=== PATIENT | male | born 1940 | race Caucasian/White ===

== ENCOUNTER 2017-01-06 01:49 | Inpatient (IN) | payer OTHER ==
[2017-01-06] MEDS ORDERED: DUONEB (A & A) INH ONE (02:07)
--- NOTE | 2017-01-06 02:10 | PROVIDER DOCUMENTATION ---
HPI-Neurological Disorder - General Source: EMS <Monica Aguilaralcon Cerrato - Last Filed: 01/06/17 02:10> <Carmela Guevara - Last Filed: 01/06/17 03:13> - General Source: patient, family <Vicente Sykes - Last Filed: 01/06/17 04:51> - General Chief Complaint: Fall Stated Complaint: fall Time Seen by Provider: 01/06/17 02:07 Allergies/Adverse Reactions: Patient Allergies Allergy/AdvReac Type Severity Reaction Status Date / Time aspirin AdvReac Unknown Verified 01/06/17 02:03 Home Medications: Home Medication List Medication Instructions Recorded Confirmed Last Taken Type Atenolol 25 mg PO DAILY 03/19/15 08/06/16 03/26/16 07:00 History Gabapentin 300 mg PO TID 03/19/15 08/06/16 03/25/16 16:00 History Metformin [Glucophage] 1,000 mg PO BID 03/19/15 08/06/16 03/26/16 07:00 History Omeprazole 80 mg PO DAILY 03/19/15 08/06/16 03/26/16 07:00 History PRAVAstatin [Pravachol] 80 mg PO DAILY 03/19/15 08/06/16 03/25/16 19:00 History Tamsulosin [Flomax] 0.4 mg PO QHS 03/19/15 08/06/16 03/25/16 12:00 History Trazodone [Desyrel] 100 mg PO QHS 03/19/15 08/06/16 03/25/16 19:00 History Warfarin [Coumadin] 4 mg PO DIRECTED 03/19/15 08/06/16 03/26/16 07:00 History Cholecalciferol (Vitamin D3) 1,000 units PO DAILY 08/18/15 08/06/16 03/26/16 07: 00 History [Vitamin D] Magnesium Cl D.r. [Slow-Mag] 1 tab PO BID 08/18/15 08/06/16 03/25/16 12:00 History Vit B12/Pyridoxine/Thiamine [Pv 1 tab PO DAILY 08/18/15 08/06/16 03/26/16 07:00 History Neuro Deni Tablet] Zolpidem Tartrate 10 mg PO HS 08/18/15 08/07/16 03/25/16 19:00 History Glimepiride 4 mg PO DAILY 03/26/16 08/06/16 03/26/16 07:00 History Warfarin [Coumadin] 2 mg PO DIRECTED 03/26/16 08/06/16 03/24/16 History Acetaminophen with Codeine 1 tab PO PRN PRN 08/06/16 08/07/16 Unknown History [Tylenol with Codeine #3] Acetaminophen with Codeine 1 each PO Q6H PRN PRN #20 tablet 08/07/16 Unknown Rx [Tylenol with Codeine #3 Tablet] Sulfamethoxazole/Tmp D.s. [Septra 1 each PO BID #20 tablet 08/07/16 Unknown Rx Ds] - History of Present Illness-Neuro Nature of Presenting Problem: 77 y/o WM who is not able to give history, BIB EMS for fall and AMS. States called due to fall out of the bed. It is unknown if he hit his head, had loc or has any injuries. Other history is unobtainable, patient cannot answer my questions. He responds to sternal rub, will open eyes with commands. ( Kenzie Aguilar) Review of Systems - Adult - REVIEW OF SYSTEMS - ADULT ROS:: unobtainable per condition <Kenzie Aguilar - Last Filed: 01/06/17 02:10> - REVIEW OF SYSTEMS - ADULT Constitutional: reports: see HPI All Other Systems: Reviewed and Negative <Vicente Sykes - Last Filed: 01/06/17 04:51> Past History - Adult - PAST MEDICAL HISTORY-ADULT Review of Records: reports: Old Records Reviewed, Nursing Assessment Review, Medications Reviewed, Social history reviewed & non-contributory. Major Childhood Illnesses: reports: denies history Cardiovascular: reports: A-Fib, CAD, HTN, hyperlipidemia Respiratory: reports: denies history Gastrointestinal: reports: denies history Genitourinary: reports: denies history Musculoskeletal: reports: denies history Neurological: reports: cognitive dysfunction (dementia) Endocrine/Immune: reports: Diabetes Diabetes Type: Type 2 Other Conditions: reports: denies history - PRIOR SURGERIES/PROCEDURES Surgical/Procedure History: reports: orthopedic (extremity) (left shoulder ) - PRIOR HOSPITALIZATIONS Prior Hospitalizations: reports: none - IMMUNIZATION STATUS Childhood Immunizations: See Nurse Assessment Flu Vaccine: See Nurse Assessment - FAMILY HISTORY Family History: reviewed, not pertinent - SOCIAL HISTORY Living Situation: family <Kenzie Aguilar - Last Filed: 01/06/17 02:10> - PAST MEDICAL HISTORY-ADULT Review of Records: reports: Old Records Reviewed, Nursing Assessment Review, Medications Reviewed, Social history reviewed & non-contributory. <Vicente Sykes - Last Filed: 01/06/17 04:51> Physical Exam- Neurological - Physical Exam-Neuro Initial Vital Signs Reviewed: Yes General Appearance: lethargic, slow to respond Eye Exam: bilateral eye: normal inspection, PERRL HENMT: normocephalic/atraumatic, moist mucous membranes Head Injury: no evidence of injury Neck: non-tender, full range of motion, supple, normal inspection. negative: C- spine tenderness Respiratory: chest non-tender, no pleuratic chest pain, no respiratory distress , no accessory muscle use, wheezing (generalized, poor air movement.) Cardiovascular: tachycardia Abdominal Exam: distended, tenderness (generalized, groans with palpation), hernia (umbilical) Peripheral Pulses: radial (R): 2+, radial (L): 2+, dorsalis-pedis (R): 2+, dorsalis-pedis (L): 2+ audio video tech Exam: negative: facial droop Neurologic: other (patient will respond to gross commands. Cannot answer questions, nwil not move the lower extremities on command.) <Kenzie AguilarLizy - Last Filed: 01/06/17 02:10> Progress - EKG 1 Time of EKG reading by physician:: 03:03 EKG Read and Signed by:: Vicente Sykes EKG Interpretation (*Must complete 3 of following elements*): Abnormal Rate: 120 Rhythm: sinus tachycardia with PVCs or fusion complexes [place]: left <Carmela Guevara - Last Filed: 01/06/17 03:13> - REASSESSMENT Reassessment #1 Time Reassessed: 04:49 (pts aware of er tx plan and admit ,also aware of labs and ct reports) Status: unchanged - CONSULTS/PCP/HOSPITALIST Notification #1 *Consult/PCP/Hospitalist*: dr palacio Time Discussed: 04:00 <Vicente Sykes - Last Filed: 01/06/17 04:51> Departure <Kenzie Aguilar - Last Filed: 01/06/17 02:10> <Carmela Guevara - Last Filed: 01/06/17 03:13> - Departure Time of Disposition Order: 04:47 Certified Medical Emergency: Emergent <Vicente Sykes - Last Filed: 01/06/17 04:51> - Departure DIAGNOSIS: Atrial fibrillation with rapid ventricular response, Rhabdomyolysis, Fall, Contusion, knee and lower leg Disposition: ADMITTED INPATIENT 09 Condition: Stable Referrals: None,PCP [Primary Care Provider] - Attestation - Physician/ RAMÓN Attestation Patient care was provided by Advanced Practice Provider:: Yes Advanced Practice Provider:: Kenzie Aguilar Advanced Practice Provider documentation review:: The Mid-level provider documentation, treatment plan and medical decision making was reviewed by the physician who agrees with all treatment and medical decision making by the MLP. The physician spent face to face time with patient:: Yes <Kenzie Aguilar - Last Filed: 01/06/17 02:10> Physician Attestation
[2017-01-06 02:43] LABS: MANUAL DIFF NEEDED? NO
[2017-01-06 02:56] LABS: BASO% 0.2 % (0.0-0.8); EOS# 0.02 X1000 (0.0-0.7); EOS% 0.4 % (0.0-10.0); HEMOGLOBIN 13.2 g/dL (14.0-18.0); IMM GRAN# 0.01 X1000 (0.0-0.04); IMM GRAN% 0.2 % (0.0-0.5); LYMPH# 0.57 X1000 (1.2-3.4); LYMPH% 11.6 % (20.5-51.1); MCH 29.7 PG (27-31); MCHC 33.8 g/dL (33-37); MCV 87.6 FL (81-99); MONO# 0.38 X1000 (0.11-0.59); MONO% 7.7 % (1.7-9.3); MPV 10.9 FL (7.4-10.4); NEUT% 79.9 % (42.2-75.2); PLT 174 X1000 (130-400); RBC 4.45 XMIL (4.7-6.1)
[2017-01-06 03:21] LABS: BE 0.3 mmoll (-3.0-3.0); BLOOD TYPE ARTERIAL; DRAW SITE R RADIAL; METHB 1.4 % (0.0-1.5); O2(CT) 17.2 mL/dL (15.0-23.0); PCO2(98.6) 38 mmHg (35-45); PO2(98.6) 99 mmHg (60-100); SAMPLE BLOOD; SAO2 97.8 % (95.0-100.0); THB 12.7 g/dL (11.5-17.4); pH(98.6) 7.42 (7.35-7.45)
[2017-01-06 03:22] LABS: ALLEN TEST YES; MODALITY CANNULA
[2017-01-06 03:26] LABS: ALBUMIN 4.4 g/dL (3.5-5.0); CALCIUM 9.5 mg/dL (8.8-10.2); POTASSIUM 4.1 mmol/L (3.5-5.1); TOTAL BILIRUBIN 0.2 mg/dL (0.20-1.00); TOTAL PROTEIN 7.2 g/dL (6.3-8.3)
[2017-01-06 03:34] LABS: CK INDEX 0.2 (0.0-2.5); CK-MB 1.35 ng/mL (0.0-5.0)
[2017-01-06] MEDS ORDERED: NS 1,000 ML IV ONE (03:41)
[2017-01-06 03:58] LABS: URINE CULTURE PL NEEDED? NO; URINE SOURCE CLEAN CATCH
[2017-01-06] MEDS ORDERED: ZOFRAN IV PRN (04:04)
[2017-01-06 04:09] LABS: UR AMPHETAMINES QUAL NONE DETECTED (NONE DETECT); UR BARBITUATES QUAL NONE DETECTED (NONE DETECT); UR BENZODIAZEPIN QUAL NONE DETECTED (NONE DETECT); UR CANNABINOIDS QUAL NONE DETECTED (NONE DETECT); UR COCAINE QUAL NONE DETECTED (NONE DETECT); UR MDMA QUAL NONE DETECTED (NONE DETECT); UR METHADONE QUAL NONE DETECTED (NONE DETECT); UR METHAMPHETAMINE QUAL NONE DETECTED (NONE DETECT); UR OPIATES QUAL PRESUMPTIVE POSITIVE (NONE DETECT); UR OXYCODONE QUAL NONE DETECTED (NONE DETECT); UR PCP QUAL NONE DETECTED (NONE DETECT); UR TCA QUAL NONE DETECTED (NONE DETECT)
[2017-01-06 04:33] LABS: INR 1.61 (0.86-1.15); PROTIME 19.4 Seconds (12.1-15.5); PTT PL 46.2 Seconds (22.6-43.9)
[2017-01-06] MEDS ORDERED: CARDIZEM IV ONE (04:45)
[2017-01-06] MEDS ORDERED: ATIVAN IV ONE (04:46)
[2017-01-06 05:10] LABS: BILIRUBIN URINE NEGATIVE (NEGATIVE); BLOOD URINE 3+ (NEGATIVE); CLARITY CLEAR (CLEAR); COLOR YELLOW; LEUKOCYTES URINE NEGATIVE (NEGATIVE); NITRITE URINE NEGATIVE (NEGATIVE); PROTEIN URINE 1+(30 mg/dL) mg/dL (NEGATIVE); UROBILINOGEN URINE NORMAL
[2017-01-06 05:11] LABS: URINE EPITHELIAL CELLS <10 /HPF (<10); URINE WBC <10 /HPF (<10)
--- NOTE | 2017-01-06 06:10 | EKG Report ---
Test Performed on : 01/06/2017 03:03:16 AM Test Reason : AMS Blood Pressure : / mmHG Vent. Rate : 120 BPM Atrial Rate : 125 BPM P-R Int : 136 ms QRS Dur : 082 ms QT Int : 320 ms P-R-T Axes : 000 -39 047 degrees QTc Int : 452 ms Sinus tachycardia. with premature ventricular complexes. or fusion complexes Left axis deviation Abnormal ECG When compared with ECG of 26-MAR-2016 09:56, Sinus rhythm. has replaced Atrial fibrillation. Unconfirmed Result
[2017-01-06] MEDS: DUONEB (A & A) INH SCH ×4 (07:30→23:46)
--- NOTE | 2017-01-06 08:59 | Diag Imaging Result Document ---
PROCEDURE NAME: HEAD/C-SPINE W/O CONTRAST - 01/06/[address], 01/06/2017: COMPARISON: 08/07/2016. FINDINGS: There is stable diffuse cerebral atrophy. Stable chronic microvascular disease. There is slight worsening in the bilateral maxillary and ethmoid sinusitis. No intracranial mass or hemorrhage. The skull is intact. IMPRESSION: No acute intracranial abnormality. Mild sinusitis. CT CERVICAL SPINE, 01/06/2017: COMPARISON: 08/07/2016. FINDINGS: There is stable anterior fusion at C5-C6-C7. No hardware fracture or loosening. Stable mild to moderate degeneration throughout the other levels of the cervical spine notably at C4-C5. Stable predominantly right-sided facet degeneration as well. IMPRESSION: No acute disease or change from prior.
--- NOTE | 2017-01-06 09:18 | EKG Report ---
Test Performed on : 01/06/2017 09:07:07 AM Test Reason : a-fib @ 150 Blood Pressure : / mmHG Vent. Rate : 149 BPM Atrial Rate : 082 BPM P-R Int : 160 ms QRS Dur : 112 ms QT Int : 294 ms P-R-T Axes : 000 -79 021 degrees QTc Int : 463 ms Undetermined rhythm Left axis deviation Right bundle branch block Abnormal ECG When compared with ECG of 06-JAN-2017 03:03, (Unconfirmed) Current undetermined rhythm precludes rhythm comparison, needs review Right bundle branch block is now present Confirmed by Keit Edouard MD ([id number]) on 01/16/2017 9:07:21 PM
--- NOTE | 2017-01-06 10:03 | Diag Imaging Result Document ---
PROCEDURE NAME: LUMBAR SPINE W/O CONTRAST - 01/06/2017 CT LUMBAR SPINE, 01/06/2017: COMPARISON: CT abdomen and pelvis 10/21/2013. FINDINGS: There is a stable nonobstructing left renal stone. Alignment is anatomic. Vertebral body heights are preserved. There is moderate multilevel disk degeneration worst at L4-L5. No fracture or subluxation. No severe central canal stenosis. IMPRESSION: Lumbar spondylosis. Left nephrolithiasis. No change from prior.
--- NOTE | 2017-01-06 10:04 | Diag Imaging Result Document ---
PROCEDURE NAME: PELVIS W/O CONTRAST - 01/06/2017 CT PELVIS, 01/06/2017: COMPARISON: 10/21/2013. FINDINGS: No fracture or subluxation. There is advanced degeneration of the sacroiliac joints. There is mild degeneration of the hip joints bilaterally. Soft tissues are clear. IMPRESSION: Degenerative changes of the pelvis. No acute injury.
[2017-01-06] MEDS: TENORMIN PO SCH (10:12)
[2017-01-06] MEDS ORDERED: COUMADIN PO SCH ×3 (11:30→21:00)
[2017-01-06] MEDS: CARDIZEM 100 MG/NS 100 ML IV SCH ×2 (12:00→19:53)
--- NOTE | 2017-01-06 12:34 | Diag Imaging Result Document ---
PROCEDURE NAME: KNEE 3 VIEWS RIGHT - 01/06/2017 X-RAY RIGHT KNEE 3 VIEWS, 01/06/2017: COMPARISON: None. FINDINGS: Alignment is anatomic. No evidence of fracture or subluxation. There is moderate degeneration at all 3 compartments of the knee. There is also rather advanced peripheral vascular disease. No joint effusion. IMPRESSION: Rather advanced chronic changes of the knee.
--- NOTE | 2017-01-06 12:37 | Diag Imaging Result Document ---
PROCEDURE NAME: CHEST-PORTABLE - 01/06/2017 PORTABLE CHEST X-RAY, 01/06/2017: COMPARISON: 04/15/2016. FINDINGS: Stable cardiac device in the anterior chest wall. Heart size is normal. Pulmonary vascularity is normal. No focal infiltrates. IMPRESSION: No acute disease or change from prior.
[2017-01-06 12:51] LABS: AGAP 15; ALBUMIN 3.5 g/dL (3.5-5.0); ALKALINE PHOSPHATASE 35 U/L (32-122); BUN 12 mg/dL (8-22); CALCIUM 8.8 mg/dL (8.8-10.2); CHLORIDE 97 mmol/L (98-107); COSMO 273; GOT 30 U/L (10-34); GPT 12 U/L (10-44); MAGNESIUM 1.5 mg/dL (1.5-2.7); POTASSIUM 3.3 mmol/L (3.5-5.1); SODIUM 133 mmol/L (136-145); TCO2 21 mmol/L (25-35); TOTAL PROTEIN 6.3 g/dL (6.3-8.3)
[2017-01-06 13:10] LABS: CK INDEX 0.2 (0.0-2.5); CK-MB 1.18 ng/mL (0.0-5.0)
[2017-01-06 14:59] LABS: URINE CULTURE PL NEEDED? NO; URINE SOURCE VOIDED
[2017-01-06 15:03] LABS: BILIRUBIN URINE NEGATIVE (NEGATIVE); BLOOD URINE 2+ (NEGATIVE); CLARITY VERY CLOUDY (CLEAR); COLOR AMBER; PROTEIN URINE 1+(30 mg/dL) mg/dL (NEGATIVE); URINE RBC <10 /HPF (<10)
[2017-01-06 15:04] LABS: LEUKOCYTES URINE NEGATIVE (NEGATIVE); NITRITE URINE NEGATIVE (NEGATIVE); UROBILINOGEN URINE NORMAL
--- NOTE | 2017-01-06 15:05 | HISTORY AND PHYSICAL ---
CHIEF COMPLAINT: Fall. HPI: This is a 77-year-old male with a history of atrial fibrillation, hypertension, syncope, diabetes mellitus and antithrombin 3 deficiency. He presented to the emergency room via EMS after falling out of bed. The patient has dementia and therefore history is taken from the and the chart. It is unknown if he hit his head or if he sustained any injuries. CT of the head, cervical spine, lumbar and pelvis were performed which revealed no acute abnormalities. In the emergency room he did have an EKG that revealed sinus tach at a rate of 120. At that time he was given albuterol nebulizations, 0.5 of Ativan and he was admitted for further evaluation and treatment. Shortly after arrival to the floor his heart rate did increase., EKG revealed atrial fibrillation with RVR. Therefore he has been transferred ICU. 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 PAST SURGICAL HISTORY: Shoulder, ear and neck surgery. SOCIAL HISTORY: No alcohol, tobacco or illicit drug use. He does live at home with his . He does have dementia. ALLERGIES: Aspirin which has unknown reaction. HOME MEDICATIONS: A list will be obtained. REVIEW OF SYSTEMS: Unable to obtain from the patient. PHYSICAL EXAMINATION: GENERAL: This is a 77-year-old man who is sitting up in the bed with no distress. VITAL SIGNS: Blood pressure is 114/86 with heart rate of 136, respirations are 20, temperature is 99.7 degrees axillary with oxygen saturations 99-100% on 2 L nasal cannula. CARDIOVASCULAR: Irregularly irregular rate and rhythm. S1 and S2 appreciated. PULMONARY: He has wheezes scattered throughout with no increased work of breathing noted. GASTROINTESTINAL: Abdomen soft, nondistended. Bowel sounds in all 4 quadrants. EXTREMITIES: No clubbing, cyanosis or edema. Pulses are palpable. SKIN: Warm and dry. DIAGNOSTIC: Labs, WBC is 4.93 with hemoglobin 13.2, hematocrit 39 and platelets 174,000. INR is 1.61, sodium is 135, potassium 4.1, BUN 14, creatinine 1.3 with a glucose of 199. His CPK is 899 with troponins less than 0.010 multiple occasions. Urine drug screen is positive for opiates. ABG, pH 7.42 with pCO2 38, PO2 of 99, bicarb of 25.1. These are on [address] of the head, cervical spine, lumbar spine and pelvis revealed no acute abnormality. ASSESSMENT AND PLAN: 1. Atrial fibrillation, rapid ventricular response. 2. Fall. 3. Rhabdomyolysis. 4. Fever. 5. Coronary artery disease history of. 6. Diabetes mellitus type 2. 7. 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 PLAN: He will be admitted to the hospital placed on telemetry. Will give IV hydration. Trend labs. We will trend CPK. We will hold any antidiabetic medicine at present and he will be placed on pattern blood glucose with sliding scale insulin. As he has been transferred to ICU will start a Cardizem drip. We will continue to trend cardiac enzymes. Further treatments pending hospital course. Dictated by RADHA Casas for Cristian Noonan MD
[2017-01-06] MEDS ORDERED: TYLENOL PO ONE (20:20)
[2017-01-06] MEDS: CARDIZEM PO SCH (20:56)
[2017-01-06] MEDS: TAMIFLU PO SCH (20:57)
[2017-01-06] MEDS: DESYREL PO SCH (20:57)
[2017-01-06] MEDS: SLOW-MAG PO SCH (20:59)
[2017-01-06] MEDS: PRAVACHOL PO SCH (20:59)
[2017-01-06] MEDS: HUMULIN R DOSE (PARKWAY) SUBQ SCH (21:00)
[2017-01-07] MEDS: CARDIZEM PO SCH ×4 (01:53→20:24)
[2017-01-07] MEDS: DUONEB (A & A) INH SCH ×2 (04:18→08:44)
[2017-01-07] MEDS: PRILOSEC PO SCH (06:12)
[2017-01-07] MEDS: HUMULIN R DOSE (PARKWAY) SUBQ SCH ×4 (06:12→20:26)
[2017-01-07 06:35] LABS: HEMATOCRIT 34.5 % (42.0-52.0); INR 1.54 (0.86-1.15); MCH 30.2 PG (27-31); MCHC 34.8 g/dL (33-37); MCV 86.7 FL (81-99); MPV 11.2 FL (7.4-10.4); PROTIME 18.7 Seconds (12.1-15.5); RBC 3.98 XMIL (4.7-6.1)
[2017-01-07 06:51] LABS: AGAP 12; ALBUMIN 3.6 g/dL (3.5-5.0); ALKALINE PHOSPHATASE 35 U/L (32-122); BUN 11 mg/dL (8-22); CALCIUM 9.1 mg/dL (8.8-10.2); CHLORIDE 98 mmol/L (98-107); COSMO 274; GOT 32 U/L (10-34); GPT < 5 U/L (10-44); MAGNESIUM 1.7 mg/dL (1.5-2.7); POTASSIUM 3.6 mmol/L (3.5-5.1); SODIUM 135 mmol/L (136-145); TCO2 25 mmol/L (25-35)
[2017-01-07 07:07] LABS: CK INDEX 0.3 (0.0-2.5); CK-MB 1.67 ng/mL (0.0-5.0)
[2017-01-07] MEDS ORDERED: COUMADIN PO SCH (08:30)
--- NOTE | 2017-01-07 08:46 | PROGRESS NOTE ---
DATE: 01/07/2017 SUBJECTIVE: Patient notes that he is feeling a little bit better. He is having less cough and congestion. Still having right shoulder pain but this is from a previous fall. Denies any current chest pain or palpitations. Denies any fevers, chills. PHYSICAL EXAMINATION: General: Well developed, well nourished. He is in no respiratory distress currently. Vital Signs: His temperature is 98, pulse 86, respiratory rate 20, BP 103/74. He is awake, alert, oriented. Neck: Supple. CV: Irregular rate but rate controlled currently. Chest: Relatively clear. Abdomen: Soft. Extremities: Moves all extremities. Neurologic: No changes. DIAGNOSTIC DATA: CBC normal. INR is low at 1.54. Potassium is better at 3.6, glucose better at 173. CPK continues to improve at 606. ASSESSMENT: 1. Atrial fibrillation with rapid ventricular response, resolved, currently chronic atrial fibrillation. 2. Frequent falls. 3. Rhabdomyolysis. 4. Fever, resolved. 5. Influenza type A. 6. Known coronary artery disease. 7. Diabetes. 8. Antithrombin 3 deficiency, on Coumadin. PLAN: We will move patient to the floor. We will continue his current home medications. Further orders as needed.
[2017-01-07] MEDS: TAMIFLU PO SCH ×2 (08:57→20:27)
[2017-01-07] MEDS: VITAMIN D PO SCH (08:57)
[2017-01-07] MEDS: FLOMAX PO SCH (08:58)
[2017-01-07] MEDS: TENORMIN PO SCH (08:58)
[2017-01-07] MEDS: TYLENOL WITH CODEINE #3 PO PRN ×3 (09:06→22:00)
[2017-01-07] MEDS: GLUCOPHAGE PO SCH ×2 (09:07→16:37)
[2017-01-07] MEDS: NEPHROCAPS PO SCH (10:47)
[2017-01-07] MEDS: SLOW-MAG PO SCH ×2 (10:48→20:27)
[2017-01-07] MEDS: AMARYL PO SCH ×2 (12:24→20:25)
--- NOTE | 2017-01-07 14:16 | EKG Report ---
Test Performed on : 01/07/2017 2:05:08 PM Test Reason : possible rhythm change to NSR Blood Pressure : / mmHG Vent. Rate : 078 BPM Atrial Rate : 441 BPM P-R Int : 000 ms QRS Dur : 076 ms QT Int : 360 ms P-R-T Axes : 000 -20 014 degrees QTc Int : 410 ms Accelerated Junctional rhythm. Nonspecific ST abnormality Abnormal ECG When compared with ECG of 06-JAN-2017 09:07, (Unconfirmed) Previous ECG has undetermined rhythm, needs review Right bundle branch block is no longer present Unconfirmed Result
[2017-01-07] MEDS: AMBIEN PO SCH (20:25)
[2017-01-07] MEDS: COUMADIN PO SCH (20:25)
[2017-01-07] MEDS: DESYREL PO SCH (20:26)
[2017-01-07] MEDS: PRAVACHOL PO SCH (20:26)
[2017-01-07] MEDS: NEURONTIN PO SCH (20:26)
[2017-01-08] MEDS: CARDIZEM PO SCH ×4 (01:32→20:50)
[2017-01-08 04:40] LABS: INR 1.84 (0.86-1.15); PROTIME 21.4 Seconds (12.1-15.5)
[2017-01-08] MEDS: HUMULIN R DOSE (PARKWAY) SUBQ SCH ×4 (06:27→20:52)
[2017-01-08] MEDS: PRILOSEC PO SCH (06:27)
[2017-01-08] MEDS ORDERED: LASIX IV ONE (07:13)
[2017-01-08] MEDS ORDERED: KLOR-CON PO ONE (07:13)
[2017-01-08] MEDS ORDERED: SOLU-MEDROL IV ONE (07:33)
[2017-01-08] MEDS: LEVAQUIN 750 MG/D5W 150 ML IV SCH (07:37)
[2017-01-08] MEDS: GLUCOPHAGE PO SCH ×2 (07:37→17:48)
[2017-01-08] MEDS: FLOMAX PO SCH (09:23)
[2017-01-08] MEDS: SLOW-MAG PO SCH ×2 (09:23→20:54)
[2017-01-08] MEDS: VITAMIN D PO SCH (09:23)
[2017-01-08] MEDS: TAMIFLU PO SCH ×2 (09:23→20:53)
[2017-01-08] MEDS: NEPHROCAPS PO SCH (09:23)
[2017-01-08] MEDS: TENORMIN PO SCH (09:23)
[2017-01-08] MEDS: AMARYL PO SCH ×2 (11:50→20:50)
[2017-01-08] MEDS: TYLENOL WITH CODEINE #3 PO PRN ×2 (13:37→20:45)
[2017-01-08] MEDS: AMBIEN PO SCH (20:51)
[2017-01-08] MEDS: DESYREL PO SCH (20:51)
[2017-01-08] MEDS: COUMADIN PO SCH (20:51)
[2017-01-08] MEDS: NEURONTIN PO SCH (20:52)
[2017-01-08] MEDS: PRAVACHOL PO SCH (20:53)
[2017-01-09] MEDS: TYLENOL WITH CODEINE #3 PO PRN (03:00)
[2017-01-09] MEDS: CARDIZEM PO SCH ×4 (03:00→20:15)
[2017-01-09 06:06] LABS: BE 0.5 mmoll (-3.0-3.0); BLOOD TYPE ARTERIAL; DRAW SITE L RADIAL; METHB 1.1 % (0.0-1.5); O2(CT) 14.8 mL/dL (15.0-23.0); PCO2(98.6) 36 mmHg (35-45); PO2(98.6) 83 mmHg (60-100); SAMPLE BLOOD; SAO2 96.6 % (95.0-100.0); THB 11.1 g/dL (11.5-17.4); pH(98.6) 7.44 (7.35-7.45)
[2017-01-09 06:13] LABS: ALLEN TEST YES; MODALITY ROOM AIR
[2017-01-09] MEDS: PRILOSEC PO SCH (06:23)
[2017-01-09] MEDS: HUMULIN R DOSE (PARKWAY) SUBQ SCH (06:23)
[2017-01-09 06:25] LABS: BASO% 0.1 % (0.0-0.8); HEMATOCRIT 36.3 % (42.0-52.0); IMM GRAN# 0.01 X1000 (0.0-0.04); IMM GRAN% 0.1 % (0.0-0.5); LYMPH# 0.73 X1000 (1.2-3.4); LYMPH% 10.4 % (20.5-51.1); MANUAL DIFF NEEDED? YES; MCH 28.8 PG (27-31); MCHC 33.1 g/dL (33-37); MCV 87.1 FL (81-99); MONO# 0.38 X1000 (0.11-0.59); MONO% 5.4 % (1.7-9.3); MPV 11.7 FL (7.4-10.4); PLT 182 X1000 (130-400); RBC 4.17 XMIL (4.7-6.1)
[2017-01-09 06:35] LABS: INR 2.78 (0.86-1.15); PROTIME 29.3 Seconds (12.1-15.5)
[2017-01-09 06:43] LABS: ALBUMIN 3.7 g/dL (3.5-5.0); CALCIUM 9.5 mg/dL (8.8-10.2); MAGNESIUM 1.4 mg/dL (1.5-2.7); POTASSIUM 4.7 mmol/L (3.5-5.1); TOTAL BILIRUBIN 0.2 mg/dL (0.20-1.00); TOTAL PROTEIN 6.9 g/dL (6.3-8.3)
[2017-01-09 07:15] LABS: BANDS 2 % (0-1); LYMPHS 4 % (21-51); MONO 1 % (1-9)
--- NOTE | 2017-01-09 08:26 | Diag Imaging Result Document ---
PROCEDURE NAME: CHEST-PORTABLE - 01/09/2017 CHEST, SINGLE VIEW: INDICATION: Cough. Dyspnea. COMPARISON: 01/06/2017. FINDINGS: The cardiomediastinal silhouette is within normal limits. The pulmonary vasculature is not congested. There are no acute infiltrates or effusions. Stable electronic device projects over the left lung. There are postsurgical changes of the lumbar spine. IMPRESSION: 1. Stable chest. 2. No acute cardiopulmonary abnormality.
[2017-01-09] MEDS: LEVAQUIN 750 MG/D5W 150 ML IV SCH (08:58)
[2017-01-09] MEDS: FLOMAX PO SCH (08:58)
[2017-01-09] MEDS: VITAMIN D PO SCH (08:58)
[2017-01-09] MEDS: GLUCOPHAGE PO SCH ×2 (08:58→17:20)
[2017-01-09] MEDS: TENORMIN PO SCH (08:59)
[2017-01-09] MEDS: NEPHROCAPS PO SCH (08:59)
[2017-01-09] MEDS: TAMIFLU PO SCH ×2 (08:59→22:40)
[2017-01-09] MEDS: DESYREL PO SCH (10:40)
[2017-01-09] MEDS: SLOW-MAG PO SCH ×2 (10:50→22:37)
[2017-01-09] MEDS: HUMALOG DOSE (PARKWAY) SUBQ SCH ×3 (10:56→22:40)
[2017-01-09] MEDS: AMARYL PO SCH ×2 (11:00→22:38)
[2017-01-09] MEDS ORDERED: AMBIEN ONE (22:28)
[2017-01-09] MEDS: NEURONTIN PO SCH (22:38)
[2017-01-09] MEDS: PRAVACHOL PO SCH (22:40)
[2017-01-10] MEDS: CARDIZEM PO SCH ×4 (02:37→19:50)
[2017-01-10] MEDS: TYLENOL WITH CODEINE #3 PO PRN ×3 (06:09→19:50)
[2017-01-10] MEDS: PRILOSEC PO SCH (06:10)
[2017-01-10] MEDS: HUMALOG DOSE (PARKWAY) SUBQ SCH ×4 (06:35→21:13)
[2017-01-10 07:03] LABS: INR 3.42 (0.86-1.15); PROTIME 34.3 Seconds (12.1-15.5)
[2017-01-10 07:14] LABS: CALCIUM 9.3 mg/dL (8.8-10.2); MAGNESIUM 1.4 mg/dL (1.5-2.7); POTASSIUM 3.9 mmol/L (3.5-5.1)
[2017-01-10] MEDS ORDERED: LASIX IV ONE (07:43)
[2017-01-10] MEDS: SOLU-MEDROL IV SCH ×3 (08:19→23:05)
[2017-01-10] MEDS: GLUCOPHAGE PO SCH ×2 (08:19→17:24)
[2017-01-10] MEDS ORDERED: CARDIZEM PO ONE (09:34)
[2017-01-10] MEDS: NEPHROCAPS PO SCH (09:40)
[2017-01-10] MEDS: TENORMIN PO SCH (09:40)
[2017-01-10] MEDS: FLOMAX PO SCH (09:40)
[2017-01-10] MEDS: VITAMIN D PO SCH (09:40)
[2017-01-10] MEDS: LEVAQUIN 750 MG/D5W 150 ML IV SCH (09:40)
[2017-01-10] MEDS: SLOW-MAG PO SCH ×2 (09:41→21:12)
[2017-01-10] MEDS: TAMIFLU PO SCH ×2 (09:42→21:12)
[2017-01-10] MEDS: AMARYL PO SCH ×2 (12:15→21:12)
[2017-01-10] MEDS: COUMADIN PO SCH (19:45)
[2017-01-10] MEDS: PRAVACHOL PO SCH (21:12)
[2017-01-10] MEDS: DESYREL PO SCH (21:12)
[2017-01-10] MEDS: NEURONTIN PO SCH (21:12)
[2017-01-11] MEDS: CARDIZEM PO SCH ×4 (01:06→20:12)
[2017-01-11] MEDS: HUMALOG DOSE (PARKWAY) SUBQ SCH ×4 (06:05→20:14)
[2017-01-11] MEDS: PRILOSEC PO SCH (06:06)
[2017-01-11 06:40] LABS: HEMOGLOBIN 11.3 g/dL (14.0-18.0); IMM GRAN# 0.02 X1000 (0.0-0.04); IMM GRAN% 0.2 % (0.0-0.5); LYMPH# 0.68 X1000 (1.2-3.4); LYMPH% 8.1 % (20.5-51.1); MANUAL DIFF NEEDED? YES; MCH 29.4 PG (27-31); MCHC 34.2 g/dL (33-37); MCV 85.7 FL (81-99); MONO# 0.16 X1000 (0.11-0.59); MONO% 1.9 % (1.7-9.3); MPV 11.1 FL (7.4-10.4); NEUT% 89.8 % (42.2-75.2); PLT 200 X1000 (130-400); RBC 3.85 XMIL (4.7-6.1)
[2017-01-11 07:04] LABS: ALBUMIN 3.6 g/dL (3.5-5.0); CALCIUM 9.3 mg/dL (8.8-10.2); POTASSIUM 3.9 mmol/L (3.5-5.1); TOTAL BILIRUBIN 0.3 mg/dL (0.20-1.00); TOTAL PROTEIN 6.6 g/dL (6.3-8.3)
[2017-01-11 07:44] LABS: LYMPHS 7 % (21-51); MONO 1 % (1-9)
[2017-01-11] MEDS: LEVAQUIN 750 MG/D5W 150 ML IV SCH (08:02)
[2017-01-11] MEDS: FLOMAX PO SCH (08:03)
[2017-01-11] MEDS: VITAMIN D PO SCH (08:03)
[2017-01-11] MEDS: TENORMIN PO SCH (08:03)
[2017-01-11] MEDS: TAMIFLU PO SCH ×2 (08:03→20:23)
[2017-01-11] MEDS: GLUCOPHAGE PO SCH ×2 (08:03→16:31)
[2017-01-11] MEDS: SOLU-MEDROL IV SCH ×2 (08:03→20:12)
[2017-01-11] MEDS: TYLENOL WITH CODEINE #3 PO PRN ×2 (08:28→16:37)
[2017-01-11] MEDS: NEPHROCAPS PO SCH (10:51)
[2017-01-11] MEDS: SLOW-MAG PO SCH ×2 (10:51→20:11)
[2017-01-11] MEDS: AMARYL PO SCH ×2 (11:09→20:12)
[2017-01-11] MEDS: NEURONTIN PO SCH (20:11)
[2017-01-11] MEDS: DESYREL PO SCH (20:12)
[2017-01-11] MEDS: PRAVACHOL PO SCH (20:12)
[2017-01-12] MEDS: CARDIZEM PO SCH ×4 (02:09→20:44)
[2017-01-12] MEDS: HUMALOG DOSE (PARKWAY) SUBQ SCH ×4 (06:12→20:44)
[2017-01-12] MEDS: PRILOSEC PO SCH (06:12)
[2017-01-12] MEDS: TYLENOL WITH CODEINE #3 PO PRN ×3 (06:17→21:43)
[2017-01-12 06:59] LABS: AGAP 16; BUN 35 mg/dL (8-22); CALCIUM 9.2 mg/dL (8.8-10.2); CHLORIDE 102 mmol/L (98-107); COSMO 291; POTASSIUM 4.1 mmol/L (3.5-5.1); SODIUM 138 mmol/L (136-145); TCO2 20 mmol/L (25-35)
[2017-01-12 07:12] LABS: INR 2.67 (0.86-1.15); PROTIME 28.4 Seconds (12.1-15.5)
[2017-01-12] MEDS: GLUCOPHAGE PO SCH ×2 (08:45→17:10)
[2017-01-12] MEDS: TAMIFLU PO SCH ×2 (08:45→20:43)
[2017-01-12] MEDS: FLOMAX PO SCH (08:45)
[2017-01-12] MEDS: SOLU-MEDROL IV SCH ×2 (08:45→20:45)
[2017-01-12] MEDS: VITAMIN D PO SCH (08:46)
[2017-01-12] MEDS: NEPHROCAPS PO SCH (08:46)
[2017-01-12] MEDS: SLOW-MAG PO SCH ×2 (08:46→20:43)
[2017-01-12] MEDS: TENORMIN PO SCH (08:46)
[2017-01-12] MEDS ORDERED: CARDIZEM IV ONE (08:53)
[2017-01-12] MEDS ORDERED: NS 1,000 ML IV ONE (08:53)
[2017-01-12] MEDS ORDERED: CARDIZEM 100 MG/NS 100 ML IV SCH (09:30)
--- NOTE | 2017-01-12 09:32 | Diag Imaging Result Document ---
PROCEDURE NAME: CHEST-PORTABLE - 01/12/2017 SINGLE FRONTAL RADIOGRAPH OF THE CHEST: COMPARISON: 01/09/2017. FINDINGS: The lungs are grossly clear. No new consolidation is identified. There is no definite pleural fluid collection. Cardiac silhouette is stable. IMPRESSION: Stable chest, with no definite acute pathology.
[2017-01-12] MEDS: CARDIZEM 100 MG/NS 100 ML IV SCH ×2 (09:37→20:19)
[2017-01-12] MEDS: LEVAQUIN 750 MG/D5W 150 ML IV SCH (09:39)
--- NOTE | 2017-01-12 09:47 | EKG Report ---
Test Performed on : 01/12/2017 08:45:39 AM Test Reason : CP Blood Pressure : / mmHG Vent. Rate : 162 BPM Atrial Rate : 324 BPM P-R Int : 000 ms QRS Dur : 066 ms QT Int : 280 ms P-R-T Axes : 000 -48 -84 degrees QTc Int : 459 ms Atrial flutter. with 2:1 AV conduction. Left axis deviation Inferior infarct , age undetermined Abnormal ECG When compared with ECG of 07-JAN-2017 14:05, (Unconfirmed) Significant changes have occurred Confirmed by Kiet Edouard MD ([id number]) on 01/16/2017 9:03:36 PM
[2017-01-12] MEDS: AMARYL PO SCH ×2 (11:46→20:44)
--- NOTE | 2017-01-12 12:05 | PROGRESS NOTE ---
DATE: 01/12/2017 OBJECTIVE: Vital signs: Temperature 98, heart rate 161 and irregular, respiratory rate 30, blood pressure 107/64, O2 sat 95% on nasal oxygen. LABORATORY: Sodium 138, potassium 4.1, BUN 35, creatinine 1.1, stable. Hemoglobin yesterday was 33 and white blood count 8400. ASSESSMENT AND PLAN: He suddenly developed increased heart rate with atrial fibrillation this morning. There was also some shortness of breath. Discussion was made with Dr. Edouard, and the patient was transferred to ICU for Cardizem drip and further evaluation. He initially had some chest discomfort. He was given Cardizem 10 mg IV, and heart rate decreased to 120. Rhythm is still atrial fibrillation. He feels a little better now. He will be placed on Cardizem drip to maintain heart rate less than 100. Cardiac enzymes will be checked.
[2017-01-12] MEDS: PRAVACHOL PO SCH (20:44)
[2017-01-12] MEDS: NEURONTIN PO SCH (20:44)
[2017-01-12] MEDS: DESYREL PO SCH (20:44)
[2017-01-13] MEDS: CARDIZEM PO SCH (02:25)
[2017-01-13] MEDS: CARDIZEM 100 MG/NS 100 ML IV SCH ×3 (04:59→19:41)
[2017-01-13] MEDS: HUMALOG DOSE (PARKWAY) SUBQ SCH ×4 (06:06→20:39)
[2017-01-13] MEDS: PRILOSEC PO SCH (06:06)
[2017-01-13] MEDS: TYLENOL WITH CODEINE #3 PO PRN ×3 (06:06→20:39)
[2017-01-13 07:03] LABS: INR 2.47 (0.86-1.15); PROTIME 26.8 Seconds (12.1-15.5)
[2017-01-13] MEDS: JANUVIA PO SCH (08:45)
[2017-01-13] MEDS: LEVAQUIN 750 MG/D5W 150 ML IV SCH (08:45)
[2017-01-13] MEDS: CARDIZEM CD PO SCH (08:45)
[2017-01-13] MEDS: TENORMIN PO SCH (08:46)
[2017-01-13] MEDS: VITAMIN D PO SCH (08:46)
[2017-01-13] MEDS: FLOMAX PO SCH (08:46)
[2017-01-13] MEDS: GLUCOPHAGE PO SCH ×2 (08:46→18:12)
[2017-01-13] MEDS: SOLU-MEDROL IV SCH ×2 (08:48→20:40)
[2017-01-13] MEDS: NEPHROCAPS PO SCH (08:49)
[2017-01-13] MEDS: TAMIFLU PO SCH ×2 (08:49→20:50)
--- NOTE | 2017-01-13 08:49 | PROGRESS NOTE ---
DATE: 01/13/2017 VITAL SIGNS: Temperature 97.4 degrees, heart rate 96, blood pressure 128/75, O2 saturation 97% on 2 liters nasal oxygen. SUBJECTIVE: Patient had converted to sinus rhythm with rate of 80s last evening on a Cardizem drip. The drip was discontinued early this morning and he went back into atrial fibrillation with rate of 105. PLAN: Place back on Cardizem drip for rate control and increase p.o. Cardizem to 240 mg LA daily. He will be kept in the ICU through the day to see if his rate can be controlled with p.o. Cardizem.
[2017-01-13] MEDS: NS 500 ML IV SCH (08:58)
[2017-01-13] MEDS: SLOW-MAG PO SCH ×2 (09:27→20:38)
[2017-01-13] MEDS: AMARYL PO SCH ×2 (13:11→20:39)
--- NOTE | 2017-01-13 20:30 | EKG Report ---
Test Performed on : 01/13/2017 8:20:36 PM Test Reason : rhythm change Blood Pressure : / mmHG Vent. Rate : 084 BPM Atrial Rate : 326 BPM P-R Int : 000 ms QRS Dur : 076 ms QT Int : 384 ms P-R-T Axes : 053 011 041 degrees QTc Int : 453 ms Atrial flutter. with variable AV block. Abnormal ECG When compared with ECG of 12-JAN-2017 08:45, (Unconfirmed) Vent. rate has decreased BY 78 BPM Criteria for Inferior infarct are no longer present ST no longer depressed in Inferior leads ST no longer depressed in Anterolateral leads Nonspecific T wave abnormality no longer evident in Inferior leads Confirmed by Kiet Edouard MD ([id number]) on 01/16/2017 9:03:15 PM
[2017-01-13] MEDS: PRAVACHOL PO SCH (20:38)
[2017-01-13] MEDS: DESYREL PO SCH (20:38)
[2017-01-13] MEDS: NEURONTIN PO SCH (20:39)
[2017-01-13] MEDS ORDERED: COUMADIN PO SCH (21:00)
[2017-01-14] MEDS: CARDIZEM 100 MG/NS 100 ML IV SCH (04:07)
[2017-01-14] MEDS: HUMALOG DOSE (PARKWAY) SUBQ SCH ×4 (06:24→20:19)
[2017-01-14] MEDS: PRILOSEC PO SCH (06:24)
[2017-01-14] MEDS: JANUVIA PO SCH (08:01)
[2017-01-14] MEDS: CARDIZEM CD PO SCH (08:02)
[2017-01-14] MEDS: VITAMIN D PO SCH (08:02)
[2017-01-14] MEDS: TENORMIN PO SCH (08:02)
[2017-01-14] MEDS: FLOMAX PO SCH (08:02)
[2017-01-14] MEDS: TYLENOL WITH CODEINE #3 PO PRN ×2 (08:02→19:17)
[2017-01-14] MEDS: LEVAQUIN 750 MG/D5W 150 ML IV SCH (08:03)
[2017-01-14] MEDS: SOLU-MEDROL IV SCH ×2 (08:03→20:18)
[2017-01-14] MEDS: NEPHROCAPS PO SCH (08:03)
[2017-01-14] MEDS: SLOW-MAG PO SCH ×2 (08:03→20:20)
[2017-01-14] MEDS: GLUCOPHAGE PO SCH ×2 (08:03→17:08)
[2017-01-14] MEDS ORDERED: CORDARONE 540 MG in D5W 289.2 ML IV ONE (10:53)
[2017-01-14] MEDS ORDERED: CORDARONE 360 MG/D5W 200 ML IV ONE (10:53)
[2017-01-14] MEDS ORDERED: CORDARONE 150 MG/D5W 100 ML IV ONE (10:53)
[2017-01-14] MEDS: AMARYL PO SCH ×2 (11:11→20:18)
--- NOTE | 2017-01-14 11:48 | EKG Report ---
Test Performed on : 01/14/2017 10:41:32 AM Test Reason : afib rvr Blood Pressure : / mmHG Vent. Rate : 127 BPM Atrial Rate : 208 BPM P-R Int : 000 ms QRS Dur : 080 ms QT Int : 320 ms P-R-T Axes : 000 -20 084 degrees QTc Int : 465 ms Atrial fibrillation. with rapid ventricular response. Abnormal ECG When compared with ECG of 14-JAN-2017 10:40, (Unconfirmed) Previous ECG has undetermined rhythm, needs review Confirmed by Kiet Edouard MD ([id number]) on 01/16/2017 9:03:05 PM
[2017-01-14] MEDS: LANOXIN IV SCH ×2 (17:08→22:27)
[2017-01-14] MEDS: CORDARONE 360 MG/D5W 200 ML IV SCH (17:09)
--- NOTE | 2017-01-14 19:28 | CONSULTATION ---
DATE OF CONSULTATION: 01/14/2017 CONSULTATION REQUESTED BY: Masood Umana MD REASON FOR CONSULTATION: Atrial fibrillation with rapid response. HISTORY OF PRESENT ILLNESS: Mr. Adams is a 77-year-old male who presented to the hospital after suffering a fall. According to the patient's daughter and the , for several weeks he has been having recurrent episodes of cough productive of some phlegm, associated with episodes of weakness, and he has a tendency to fall when he goes to the bathroom early in the morning or during the night. This weakness and falls have increased and, on the day of admission, he suffered an additional fall. The family got very concerned. They brought him to the hospital where they did multiple x-rays. Chest x-ray showed no evidence of any acute illness. EKG was done in the emergency room and that showed atrial fibrillation with rapid ventricular response. They tested the patient for flu and he tested positive for influenza type A. They also x-rayed his head, cervical spine, and lumbar spine. No acute intracranial abnormality was noted. There were stable changes of chronic microvascular disease, stable diffuse cerebral atrophy. The cervical spine was free of any significant abnormality. A lumbar spine was also done. That showed lumbar spondylosis, left nephrolithiasis, no change from prior. They did a pelvic CT examination which showed degenerative changes to the pelvis, no acute injury. Over the course of the ensuing days, he continued to cough. His rhythm was managed with Cardizem. Eventually he converted, however, yesterday he went back into atrial fibrillation with rapid response, and they had to put him in the ICU. Dr. Umana saw him and has ordered intravenous amiodarone. The patient feels the palpitations. He is having some pleuritic type of chest pain under the left breast. He is not more short of breath than usual. PAST MEDICAL HISTORY: His past history is positive for the fact that he has been diagnosed with paroxysmal atrial fibrillation in the past. He had followed with Dr. Jada Hummel at my office. The patient has suffered an episode of syncope of undetermined etiology. Dr. Hummel proceeded to implant a loop recorder on him. He has had diabetes mellitus type 2, taking metformin for it. He does have history of arthritis of multiple joints. He has had previous deep venous thrombosis and pulmonary embolism in the past. He has been on long-term anticoagulation. He has hyperlipidemia, also history of asthma. PAST SURGICAL HISTORY: He has had cataract extraction and shoulder surgery, neck surgery, and eyelid surgery. SOCIAL HISTORY: He has been for many years. He has three children. He is retired from the . He is not a smoker. He is not a drinker. REVIEW OF SYSTEMS: The patient has been diagnosed with dementia. He has also some degree of agitation at night for which they have been prescribing psychotropic medications. Other review of systems is noncontributory. HOME MEDICATIONS: His home medications at the time of admission included: 1. Metformin 1000 twice a day and 500 at lunch. 2. Sertraline 20 mg at bedtime. 3. Atenolol 25 at bedtime. 4. Gabapentin 300 at bedtime. 5. Trazodone 75 at bedtime. 6. Magnesium 1 tablet twice a day. 7. Warfarin 4 mg as directed. 8. Omeprazole 80 mg daily. 9. Glimepiride 1 mg as directed. 10.Flomax 0.4 mg daily. 11.Acetaminophen every 6 hours. 12.Zolpidem 10 mg at bedtime. PHYSICAL EXAMINATION: Vital signs: Temperature 97.8, pulse 105, respirations 26, blood pressure 132/73. General: He is awake. His speech is somewhat dysarthric, somewhat slurred. HEENT: Otherwise unremarkable. Neck: No cervical bruits. No jugular venous distention. Chest: Occasional rhonchi, some occasional end-expiratory wheezes especially in the upper portion of the lungs. Cardiovascular: Heart sounds are irregularly irregular. No gallop or murmur is noted. Abdomen: Obese, nontender. No masses. No hepatomegaly. Extremities: Decreased pulses. No peripheral edema. Neurologic: He follows commands. Moves all four extremities. LABORATORY DATA: On 01/12/2017, sodium was 138, potassium 4.1, BUN 35, creatinine 1.1. White count 8350, hemoglobin 11.3, hematocrit 33.7, neutrophils 92%, lymphocytes 7%, monocytes 1%. The last chest x-ray, which was obtained on 01/12/2017, shows stable chest with no acute pathology. IMPRESSION: 1. Patient who presented to the hospital with recurrent falls. This is probably secondary to multiple psychotropic medications and his progressive neurodegenerative condition. 2. Paroxysmal atrial fibrillation at this time is persistent. 3. Recent episode of influenza type A. 4. Chronic obstructive pulmonary disease, asthma. 5. History of previous syncope. Status post implantation of loop recorder monitor. 6. History of diabetes mellitus type 2. RECOMMENDATIONS: At this point in time, I agree with Dr. Umana in terms of keeping him on intravenous amiodarone and follow protocol, switching him over to oral doses, and monitor his warfarin very closely because in all likelihood his pro-time is going to rise over the course of the next 3 or 4 days. I would consider getting a pulmonary consultation because of his respiratory complaints dating to more than 6 weeks ago. I think the opinion of a arcade technician may be helpful. Cardiac morton, we will probably add a few doses of digoxin to his regimen to see if that helps to control the heart rate. He is already taking Cardizem and atenolol in addition to amiodarone. We will see how he does. We will arrange followup with our group at the office down the road.
[2017-01-14] MEDS: COLACE PO SCH (20:18)
[2017-01-14] MEDS: DESYREL PO SCH (20:19)
[2017-01-14] MEDS: COUMADIN PO SCH (20:19)
[2017-01-14] MEDS: PRAVACHOL PO SCH (20:20)
[2017-01-14] MEDS: NEURONTIN PO SCH (20:20)
[2017-01-15] MEDS: LANOXIN IV SCH (04:34)
[2017-01-15] MEDS: CORDARONE 360 MG/D5W 200 ML IV SCH (04:35)
[2017-01-15] MEDS: HUMALOG DOSE (PARKWAY) SUBQ SCH ×4 (06:17→20:29)
[2017-01-15] MEDS: PRILOSEC PO SCH (06:18)
[2017-01-15 06:19] LABS: BASO% 0.1 % (0.0-0.8); HEMATOCRIT 36.5 % (42.0-52.0); HEMOGLOBIN 12.3 g/dL (14.0-18.0); IMM GRAN% 0.9 % (0.0-0.5); LYMPH% 4.4 % (20.5-51.1); MANUAL DIFF NEEDED? YES; MCH 29.1 PG (27-31); MCHC 33.7 g/dL (33-37); MCV 86.3 FL (81-99); MONO# 0.49 X1000 (0.11-0.59); MONO% 4.3 % (1.7-9.3); MPV 10.8 FL (7.4-10.4); NEUT% 90.3 % (42.2-75.2); PLT 276 X1000 (130-400); RBC 4.23 XMIL (4.7-6.1)
[2017-01-15 06:28] LABS: INR 2.09 (0.86-1.15); PROTIME 23.6 Seconds (12.1-15.5)
[2017-01-15 07:38] LABS: LYMPHS 10 % (21-51)
[2017-01-15 07:53] LABS: AGAP 16; BUN 40 mg/dL (8-22); CALCIUM 9.7 mg/dL (8.8-10.2); CHLORIDE 98 mmol/L (98-107); COSMO 284; MAGNESIUM 1.8 mg/dL (1.5-2.7); POTASSIUM 5.2 mmol/L (3.5-5.1); SODIUM 133 mmol/L (136-145); TCO2 20 mmol/L (25-35)
[2017-01-15] MEDS: COLACE PO SCH ×2 (08:32→20:28)
[2017-01-15] MEDS: CARDIZEM CD PO SCH (08:32)
[2017-01-15] MEDS: SLOW-MAG PO SCH ×2 (08:32→20:30)
[2017-01-15] MEDS: FLOMAX PO SCH (08:32)
[2017-01-15] MEDS: SOLU-MEDROL IV SCH ×2 (08:32→20:28)
[2017-01-15] MEDS: TENORMIN PO SCH (08:32)
[2017-01-15] MEDS: GLUCOPHAGE PO SCH ×2 (08:32→16:29)
[2017-01-15] MEDS: VITAMIN D PO SCH (08:32)
[2017-01-15] MEDS: JANUVIA PO SCH (08:32)
[2017-01-15] MEDS: LEVAQUIN 750 MG/D5W 150 ML IV SCH (08:33)
[2017-01-15] MEDS: NEPHROCAPS PO SCH (08:33)
[2017-01-15] MEDS: CORDARONE PO SCH ×2 (10:28→20:29)
[2017-01-15] MEDS: AMARYL PO SCH ×2 (11:54→20:28)
[2017-01-15] MEDS: TYLENOL WITH CODEINE #3 PO PRN ×2 (16:31→22:35)
[2017-01-15] MEDS: DESYREL PO SCH (20:29)
[2017-01-15] MEDS: COUMADIN PO SCH (20:29)
[2017-01-15] MEDS: NEURONTIN PO SCH (20:30)
[2017-01-15] MEDS: PRAVACHOL PO SCH (20:30)
[2017-01-16] MEDS: TYLENOL WITH CODEINE #3 PO PRN ×2 (04:20→20:20)
--- NOTE | 2017-01-16 04:40 | EKG Report ---
Test Performed on : 01/16/2017 04:34:54 AM Test Reason : rhythm change Blood Pressure : / mmHG Vent. Rate : 072 BPM Atrial Rate : 288 BPM P-R Int : 000 ms QRS Dur : 088 ms QT Int : 404 ms P-R-T Axes : 000 005 047 degrees QTc Int : 442 ms Atrial flutter. with 4:1 AV conduction. Abnormal ECG When compared with ECG of 14-JAN-2017 10:41, (Unconfirmed) Atrial flutter. has replaced Atrial fibrillation. Vent. rate has decreased BY 55 BPM Non-specific change in ST segment in Inferior leads Confirmed by Kiet Edouard MD ([id number]) on 01/16/2017 8:57:05 PM
[2017-01-16] MEDS: HUMALOG DOSE (PARKWAY) SUBQ SCH ×4 (07:04→20:30)
[2017-01-16] MEDS: PRILOSEC PO SCH (07:05)
[2017-01-16 07:23] LABS: INR 3.46 (0.86-1.15); PROTIME 34.6 Seconds (12.1-15.5)
[2017-01-16] MEDS: CORDARONE PO SCH ×2 (09:10→20:19)
[2017-01-16] MEDS: GLUCOPHAGE PO SCH ×2 (09:10→17:05)
[2017-01-16] MEDS: COLACE PO SCH ×2 (09:11→20:19)
[2017-01-16] MEDS: VITAMIN D PO SCH (09:11)
[2017-01-16] MEDS: TENORMIN PO SCH (09:11)
[2017-01-16] MEDS: SLOW-MAG PO SCH ×2 (09:12→20:18)
[2017-01-16] MEDS: SOLU-MEDROL IV SCH ×2 (09:12→20:18)
[2017-01-16] MEDS: PREDNISONE PO SCH (09:12)
[2017-01-16] MEDS: JANUVIA PO SCH (09:12)
[2017-01-16] MEDS: CARDIZEM CD PO SCH (09:13)
[2017-01-16] MEDS: FLOMAX PO SCH (09:14)
[2017-01-16] MEDS: LEVAQUIN 750 MG/D5W 150 ML IV SCH (09:14)
[2017-01-16] MEDS: NEPHROCAPS PO SCH (09:14)
[2017-01-16] MEDS: AMARYL PO SCH ×2 (12:10→20:19)
[2017-01-16] MEDS: NEURONTIN PO SCH (20:19)
[2017-01-16] MEDS: PRAVACHOL PO SCH (20:19)
[2017-01-16] MEDS: DESYREL PO SCH (20:20)
[2017-01-16] MEDS: COUMADIN PO SCH (20:22)
[2017-01-17] MEDS: HUMALOG DOSE (PARKWAY) SUBQ SCH ×4 (06:54→20:16)
[2017-01-17] MEDS: PRILOSEC PO SCH (06:54)
[2017-01-17 07:33] LABS: INR 5.53 (0.86-1.15); PROTIME 49.3 Seconds (12.1-15.5)
[2017-01-17] MEDS: FLOMAX PO SCH (09:09)
[2017-01-17] MEDS: GLUCOPHAGE PO SCH ×2 (09:09→16:11)
[2017-01-17] MEDS: CORDARONE PO SCH ×2 (09:09→20:06)
[2017-01-17] MEDS: JANUVIA PO SCH (09:09)
[2017-01-17] MEDS: VITAMIN D PO SCH (09:10)
[2017-01-17] MEDS: TENORMIN PO SCH (09:10)
[2017-01-17] MEDS: PREDNISONE PO SCH (09:10)
[2017-01-17] MEDS: CARDIZEM CD PO SCH (09:11)
[2017-01-17] MEDS: COLACE PO SCH ×2 (09:11→20:05)
[2017-01-17] MEDS: LEVAQUIN 750 MG/D5W 150 ML IV SCH (09:11)
[2017-01-17] MEDS: SLOW-MAG PO SCH ×2 (09:16→20:06)
[2017-01-17] MEDS ORDERED: NS 500 ML ONE (09:25)
[2017-01-17] MEDS: TYLENOL WITH CODEINE #3 PO PRN ×2 (09:28→20:15)
[2017-01-17] MEDS: NEPHROCAPS PO SCH (12:05)
[2017-01-17] MEDS: AMARYL PO SCH ×2 (12:09→20:05)
--- NOTE | 2017-01-17 14:26 | PROGRESS NOTE ---
DATE: 01/17/2017 CHIEF COMPLAINT: Irregular heartbeat. SUBJECTIVE: Mr. Adams is somewhat sleepy. He has really no major complaints right now. His breathing is comfortable. OBJECTIVE: Vital signs: His blood pressure today is 120/62, temperature 97.9, pulse 90, respirations 18. General: He is awake, alert, follows commands. HEENT: Unremarkable. Chest: Diminished breath sounds at the bases. Cardiac: Heart sounds are irregularly irregular. Abdomen: Nontender. Extremities: No edema. Neurological: He moves 4 extremities. BLOOD WORK TODAY: We have an INR that went up to 5.53, total pro time is 49.3 seconds. He got a dose of warfarin last night and he is on amiodarone. IMPRESSION: 1. Patient who presented to the hospital with recurrent falls. He is probably under the effects of psychotropic medication. 2. Paroxysmal atrial fibrillation which converted to atrial flutter and then back into fibrillation with controlled rate. 3. Recent episode of influenza type A. 4. Chronic obstructive pulmonary disease, asthma. 5. History of syncope status post implantable loop recorder. RECOMMENDATION: At this point in time, from a cardiology viewpoint, I agree with amiodarone. I would suggest to probably cut down the dosage to 200 mg twice a day for the next 2 weeks and then after that just keep him on 200 mg once a day. I would withhold warfarin until his INR drops to at least 2.5 to prevent any toxicity. At this point in time, from the cardiac viewpoint, no further intervention is warranted. We will be happy to see him down the road.
[2017-01-17] MEDS: PRAVACHOL PO SCH (20:05)
[2017-01-17] MEDS: DESYREL PO SCH (20:05)
[2017-01-17] MEDS: NEURONTIN PO SCH (20:06)
[2017-01-18] MEDS: TYLENOL WITH CODEINE #3 PO PRN ×2 (04:53→21:05)
[2017-01-18 05:33] LABS: MANUAL DIFF NEEDED? NO
[2017-01-18 05:47] LABS: BASO% 0.1 % (0.0-0.8); EOS# 0.03 X1000 (0.0-0.7); EOS% 0.3 % (0.0-10.0); HEMATOCRIT 35.5 % (42.0-52.0); IMM GRAN# 0.12 X1000 (0.0-0.04); LYMPH# 1.14 X1000 (1.2-3.4); LYMPH% 9.5 % (20.5-51.1); MCH 29.1 PG (27-31); MCHC 33.8 g/dL (33-37); MONO# 0.87 X1000 (0.11-0.59); MONO% 7.3 % (1.7-9.3); MPV 9.9 FL (7.4-10.4); NEUT% 81.8 % (42.2-75.2); PLT 252 X1000 (130-400); RBC 4.13 XMIL (4.7-6.1)
[2017-01-18 05:58] LABS: AGAP 11; ALBUMIN 3.4 g/dL (3.5-5.0); ALKALINE PHOSPHATASE 37 U/L (32-122); BUN 32 mg/dL (8-22); CALCIUM 9.2 mg/dL (8.8-10.2); CHLORIDE 97 mmol/L (98-107); COSMO 275; GOT 14 U/L (10-34); GPT 26 U/L (10-44); POTASSIUM 4.4 mmol/L (3.5-5.1); SODIUM 134 mmol/L (136-145); TCO2 25 mmol/L (25-35); TOTAL PROTEIN 5.6 g/dL (6.3-8.3)
[2017-01-18 06:11] LABS: PROTIME 61.7 Seconds (12.1-15.5)
[2017-01-18 06:13] LABS: INR 7.43 (0.86-1.15)
[2017-01-18] MEDS: PRILOSEC PO SCH (06:46)
[2017-01-18] MEDS: HUMALOG DOSE (PARKWAY) SUBQ SCH ×4 (06:46→21:06)
[2017-01-18] MEDS ORDERED: VITAMIN K 5 MG in NS 50 ML IV ONE ×2 (07:59→08:30)
[2017-01-18] MEDS: SLOW-MAG PO SCH ×2 (09:05→21:06)
[2017-01-18] MEDS: GLUCOPHAGE PO SCH ×2 (09:05→17:08)
[2017-01-18] MEDS: CORDARONE PO SCH ×3 (09:06→21:05)
[2017-01-18] MEDS: PREDNISONE PO SCH (09:06)
[2017-01-18] MEDS: JANUVIA PO SCH (09:06)
[2017-01-18] MEDS: VITAMIN D PO SCH (09:06)
[2017-01-18] MEDS: TENORMIN PO SCH (09:06)
[2017-01-18] MEDS: FLOMAX PO SCH (09:06)
[2017-01-18] MEDS: LEVAQUIN PO SCH (09:06)
[2017-01-18] MEDS: CARDIZEM CD PO SCH (09:06)
[2017-01-18] MEDS: COLACE PO SCH ×2 (09:06→21:05)
[2017-01-18] MEDS: NS 500 ML IV SCH (09:07)
[2017-01-18] MEDS: NEPHROCAPS PO SCH (09:57)
[2017-01-18] MEDS: AMARYL PO SCH ×2 (12:50→21:04)
[2017-01-18] MEDS: NEURONTIN PO SCH (21:04)
[2017-01-18] MEDS: PRAVACHOL PO SCH (21:05)
[2017-01-18] MEDS: DESYREL PO SCH (21:05)
[2017-01-19 06:44] LABS: INR 1.22 (0.86-1.15); PROTIME 15.7 Seconds (12.1-15.5)
[2017-01-19] MEDS: PRILOSEC PO SCH (06:56)
[2017-01-19] MEDS: HUMALOG DOSE (PARKWAY) SUBQ SCH ×4 (06:56→21:10)
[2017-01-19 07:26] LABS: MANUAL DIFF NEEDED? NO
--- NOTE | 2017-01-19 07:32 | PROGRESS NOTE ---
DATE: 01/19/2017 PRIMARY CARE PHYSICIAN: Masood Umana MD. MERCERIZER MACHINE OPERATOR: Beck Palma MD. SUBJECTIVE: Overnight, patient had very minor issues regarding need for bed changing, but otherwise had an uneventful night. Family at bedside. Initial redirection was made regarding patient's expectation to be discharged yesterday. Plans have been made to PCP transfer to rehab earlier next week. OBJECTIVE: Vital signs: Temperature 97.5, pulse 47, respirations 18, blood pressure 126/78, O2 saturation 95% on room air. General: Physical exam notes an awake, alert male who is expected. Chest: Shows diminished breath sounds at the bilateral bases. Heart: Irregularly irregular with no murmurs, gallops, or rubs noted. Abdomen: Nontender. Extremities: Show no edema with movement of all 4 extremities as expected. Neurological: Cranial nerves 2-12 are grossly intact. LABS: Show a WBC of 11.97, with a hemoglobin and hematocrit of 12 and 35 respectively. MCV of 86, neutrophils of 81.8 down from 90.3. PT and INR is 61.7 with an INR of 7.43 up from 5.53. Sodium 134 with a BUN of 32, creatinine of 1.1. POC glucose ranging from 160 to 220. Total protein 5.6, albumin 34.6. Microbiology shows sputum and blood cultures x2 no growth. Sputum culture with multiple species present, considered normal fadumo. Imaging: Patient's last imaging was a chest x-ray on 01/12/2017 showed stable chest with no acute definite pathology noted. ASSESSMENT AND PLAN: A 77-year-old male with: 1. Atrial fibrillation with rapid ventricular response. 2. Influenza type A. 3. Diabetes mellitus. 4. 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 5. Supratherapeutic INR. PLAN: Continue to monitor on the floor. We will re-evaluate a.m. labs, PT/INR and make changes as appropriate. Continue to hold the Coumadin dosing at this time and restart at approximately 2.5. We will follow alongside this patient with cardiology as assistance josefa
[2017-01-19] MEDS: SLOW-MAG PO SCH ×2 (08:17→21:11)
[2017-01-19] MEDS: NEPHROCAPS PO SCH (08:17)
[2017-01-19] MEDS: CORDARONE PO SCH ×2 (08:17→21:09)
[2017-01-19] MEDS: FLOMAX PO SCH (08:17)
[2017-01-19] MEDS: JANUVIA PO SCH (08:17)
[2017-01-19] MEDS: VITAMIN D PO SCH (08:17)
[2017-01-19] MEDS: CARDIZEM CD PO SCH (08:17)
[2017-01-19] MEDS: COLACE PO SCH ×2 (08:18→21:08)
[2017-01-19] MEDS: TENORMIN PO SCH (08:18)
[2017-01-19] MEDS: PREDNISONE PO SCH (08:18)
[2017-01-19] MEDS: LEVAQUIN PO SCH (08:18)
[2017-01-19] MEDS: GLUCOPHAGE PO SCH ×2 (08:18→16:46)
[2017-01-19] MEDS: DIFLUCAN PO SCH (08:18)
[2017-01-19 08:27] LABS: BASO% 0.1 % (0.0-0.8); EOS# 0.08 X1000 (0.0-0.7); EOS% 0.6 % (0.0-10.0); HEMATOCRIT 35.3 % (42.0-52.0); HEMOGLOBIN 12.4 g/dL (14.0-18.0); IMM GRAN# 0.17 X1000 (0.0-0.04); IMM GRAN% 1.3 % (0.0-0.5); LYMPH# 1.17 X1000 (1.2-3.4); LYMPH% 9.2 % (20.5-51.1); MCH 29.7 PG (27-31); MCHC 35.1 g/dL (33-37); MCV 84.7 FL (81-99); MONO# 0.91 X1000 (0.11-0.59); MONO% 7.2 % (1.7-9.3); MPV 10.4 FL (7.4-10.4); NEUT% 81.6 % (42.2-75.2); PLT 248 X1000 (130-400); RBC 4.17 XMIL (4.7-6.1)
[2017-01-19 08:56] LABS: AGAP 11; BUN 25 mg/dL (8-22); CHLORIDE 92 mmol/L (98-107); COSMO 269; MAGNESIUM 1.7 mg/dL (1.5-2.7); POTASSIUM 4.6 mmol/L (3.5-5.1); SODIUM 132 mmol/L (136-145); TCO2 29 mmol/L (25-35)
[2017-01-19] MEDS: AMARYL PO SCH ×2 (12:00→21:09)
[2017-01-19] MEDS ORDERED: MAGNESIUM SULFATE 2 GM/S.W.I. 50 ML IV ONE (12:51)
[2017-01-19] MEDS: TYLENOL WITH CODEINE #3 PO PRN (13:08)
[2017-01-19] MEDS: DESYREL PO SCH (21:08)
[2017-01-19] MEDS: PRAVACHOL PO SCH (21:08)
[2017-01-19] MEDS: NEURONTIN PO SCH (21:10)
[2017-01-20 05:50] LABS: MANUAL DIFF NEEDED? NO
[2017-01-20 06:00] LABS: BASO% 0.1 % (0.0-0.8); EOS% 0.9 % (0.0-10.0); HEMATOCRIT 36.8 % (42.0-52.0); HEMOGLOBIN 12.7 g/dL (14.0-18.0); IMM GRAN# 0.17 X1000 (0.0-0.04); IMM GRAN% 1.5 % (0.0-0.5); LYMPH# 1.52 X1000 (1.2-3.4); LYMPH% 13.4 % (20.5-51.1); MCH 29.1 PG (27-31); MCHC 34.5 g/dL (33-37); MCV 84.4 FL (81-99); MONO# 0.81 X1000 (0.11-0.59); MONO% 7.1 % (1.7-9.3); MPV 10.2 FL (7.4-10.4); PLT 253 X1000 (130-400); RBC 4.36 XMIL (4.7-6.1)
[2017-01-20] MEDS: HUMALOG DOSE (PARKWAY) SUBQ SCH ×4 (06:00→20:36)
[2017-01-20] MEDS: PRILOSEC PO SCH (06:00)
[2017-01-20 06:12] LABS: AGAP 10; BUN 19 mg/dL (8-22); CALCIUM 9.3 mg/dL (8.8-10.2); CHLORIDE 97 mmol/L (98-107); COSMO 274; POTASSIUM 4.2 mmol/L (3.5-5.1); SODIUM 137 mmol/L (136-145); TCO2 30 mmol/L (25-35)
[2017-01-20 06:18] LABS: INR 1.13 (0.86-1.15); PROTIME 14.8 Seconds (12.1-15.5)
[2017-01-20] MEDS: CORDARONE PO SCH ×2 (08:50→20:08)
[2017-01-20] MEDS: LEVAQUIN PO SCH (08:50)
[2017-01-20] MEDS: DIFLUCAN PO SCH (08:50)
[2017-01-20] MEDS: COLACE PO SCH ×2 (08:50→20:08)
[2017-01-20] MEDS: GLUCOPHAGE PO SCH ×2 (08:50→17:29)
[2017-01-20] MEDS: JANUVIA PO SCH (08:51)
[2017-01-20] MEDS: FLOMAX PO SCH (08:51)
[2017-01-20] MEDS: VITAMIN D PO SCH (08:51)
[2017-01-20] MEDS: TENORMIN PO SCH (08:51)
[2017-01-20] MEDS: PREDNISONE PO SCH (08:51)
[2017-01-20] MEDS: NEPHROCAPS PO SCH (08:52)
[2017-01-20] MEDS: SLOW-MAG PO SCH ×2 (08:53→20:07)
[2017-01-20] MEDS: CARDIZEM CD PO SCH (09:00)
--- NOTE | 2017-01-20 09:42 | PROGRESS NOTE ---
DATE: 01/20/2017 PRIMARY CARE PHYSICIAN: Dr. Yasmany Lopez. SUBJECTIVE: Overnight, the patient was with no major issues or complaints. Still with minimal activity, mild confusion, delirium but well managed with current medication regimen. VITAL SIGNS: Temperature 98.4 degrees, pulse 58, respirations 18, blood pressure 114/58, O2 saturation 91-98% on 2 L nasal cannula. Is and Os demonstrate approximately a 2300 mL negative fluid balance. PHYSICAL EXAMINATION: General: Awake, alert male. No acute distress. Chest: With diminished breath sounds at bilateral bases. Heart: Irregularly irregular with no murmurs, gallops, rubs noted. Abdomen: Nontender. Extremities: Movement x4 extremities. No cyanosis, clubbing, or edema noted. Neurological: Cranial nerves 2-12 are grossly intact. LABS: This a.m. show a WBC of 11.38 with a hemoglobin and hematocrit of 12 and 36 respectively, platelet count of 253,000, neutrophils at 77. PT and INR within normal limits, 1.3. Electrolytes much improved. Sodium 137, with BUN and creatinine at 19 and 1, glucose of 70-130, osmolality 274, total protein 5.6. Microbiology showed sputum and blood cultures final with no overt growth. ASSESSMENT AND PLAN: A 77-year-old male with: 1. Atrial fibrillation with rapid ventricular response. 2. Influenza type A. 3. Diabetes mellitus. 4. Antithrombin III deficiency, on Coumadin. 5. Supratherapeutic INR. 6. Continue to monitor today. We will re-evaluate labs, PT and INR in the morning. Restart Coumadin today with plans for transfer to rehabilitation tomorrow and any interventions per cardiology to be determined at that time.
[2017-01-20] MEDS: AMARYL PO SCH ×2 (11:53→20:08)
[2017-01-20] MEDS: NEURONTIN PO SCH (20:07)
[2017-01-20] MEDS: DESYREL PO SCH (20:08)
[2017-01-20] MEDS: PRAVACHOL PO SCH (20:09)
[2017-01-20] MEDS ORDERED: COUMADIN PO SCH (21:00)
[2017-01-21] MEDS: TYLENOL WITH CODEINE #3 PO PRN ×2 (01:28→15:06)
[2017-01-21] MEDS: PRILOSEC PO SCH (06:08)
[2017-01-21] MEDS: HUMALOG DOSE (PARKWAY) SUBQ SCH ×2 (06:28→11:32)
[2017-01-21 06:35] LABS: AGAP 9; BUN 20 mg/dL (8-22); CALCIUM 9.3 mg/dL (8.8-10.2); CHLORIDE 95 mmol/L (98-107); COSMO 270; POTASSIUM 4.5 mmol/L (3.5-5.1); SODIUM 132 mmol/L (136-145); TCO2 29 mmol/L (25-35)
[2017-01-21 06:36] LABS: BASO% 0.1 % (0.0-0.8); EOS# 0.05 X1000 (0.0-0.7); EOS% 0.4 % (0.0-10.0); HEMATOCRIT 36.4 % (42.0-52.0); HEMOGLOBIN 12.4 g/dL (14.0-18.0); IMM GRAN# 0.12 X1000 (0.0-0.04); IMM GRAN% 0.8 % (0.0-0.5); LYMPH# 0.97 X1000 (1.2-3.4); LYMPH% 6.9 % (20.5-51.1); MANUAL DIFF NEEDED? YES; MCHC 34.1 g/dL (33-37); MCV 85.2 FL (81-99); MONO# 0.88 X1000 (0.11-0.59); MONO% 6.2 % (1.7-9.3); MPV 10.2 FL (7.4-10.4); NEUT% 85.6 % (42.2-75.2); PLT 246 X1000 (130-400); RBC 4.27 XMIL (4.7-6.1)
[2017-01-21 06:37] LABS: INR 1.08 (0.86-1.15); PROTIME 14.3 Seconds (12.1-15.5)
[2017-01-21 07:43] LABS: LYMPHS 4 % (21-51); MONO 7 % (1-9)
[2017-01-21] MEDS: DIFLUCAN PO SCH (08:14)
[2017-01-21] MEDS: FLOMAX PO SCH (08:14)
[2017-01-21] MEDS: PREDNISONE PO SCH (08:14)
[2017-01-21] MEDS: NEPHROCAPS PO SCH (08:14)
[2017-01-21] MEDS: SLOW-MAG PO SCH (08:14)
[2017-01-21] MEDS: GLUCOPHAGE PO SCH (08:15)
[2017-01-21] MEDS: COLACE PO SCH (08:15)
[2017-01-21] MEDS: VITAMIN D PO SCH (08:15)
[2017-01-21] MEDS: CORDARONE PO SCH (08:15)
[2017-01-21] MEDS: CARDIZEM CD PO SCH (08:15)
[2017-01-21] MEDS: JANUVIA PO SCH (08:15)
[2017-01-21] MEDS: TENORMIN PO SCH (08:15)
[2017-01-21] MEDS: LEVAQUIN PO SCH (08:15)
--- NOTE | 2017-01-21 08:52 | DISCHARGE SUMMARY ---
ADMISSION DATE: 01/06/2017 DISCHARGE DATE: 01/21/2017 DISCHARGE DIAGNOSES: 1. Paroxysmal atrial fibrillation. 2. Influenza type A with lower respiratory infection. 3. Chronic obstructive pulmonary disease. 4. Coronary artery disease. 5. Type 2 diabetes mellitus. 6. Antithrombin III deficiency. 7. Hypertension. HOSPITAL COURSE: Mr. Adams is a 77-year-old gentleman who was admitted on 01/06 with altered mental status and falls. He was diagnosed as having atrial fibrillation with rapid ventricular response along with fever and was also having some rhabdomyolysis. He was admitted to the hospital and was given IV fluids, along with IV antibiotics. His atrial fibrillation with rapid ventricular rate was controlled with diltiazem, 1st intravenously and then orally. Initially, his atrial fibrillation with RVR was controlled but he currently went back to atrial fibrillation with RVR. Therefore, he had to be started on amiodarone IV drip as per protocol. Cardiology was consulted who was actively involved in the care of this patient during this hospital admission. The patient was also diagnosed as having influenza type A and therefore, was treated with Tamiflu orally. He was given IV levofloxacin because of a lower respiratory infection. He did okay but his condition has really gradually improved. He is very debilitated and has generalized weakness because of prolonged hospital admission and therefore will need care at the rehab. We treated him with IV Solu-Medrol because of his COPD and I am going to discharge him on a Medrol Dosepak. During the hospital admission, his INR went up above therapeutic range because of interaction with amiodarone. We gave him vitamin K and his INR is subtherapeutic at this time. We have restarted him on warfarin 4 mg a day and would keep a close watch on his INR after discharge. As mentioned above, his condition has improved and he is ready to be transferred to rehab today. DISCHARGE MEDICATIONS: 1. Trazodone 100 mg orally once daily at bedtime for insomnia. 2. Warfarin 4 mg once daily at bedtime as directed. 3. Omeprazole 40 mg orally once daily in the morning. 4. Metformin 1000 mg orally twice daily. 5. Tamsulosin 0.4 mg orally once daily. 6. Januvia 100 mg orally once daily. 7. Medrol Dosepak to be taken as directed. 8. Pravastatin 40 mg orally once daily at bedtime. 9. Glimepiride 1 mg orally once daily in the morning. 10. Gabapentin 300 mg orally once daily at bedtime. 11. Atenolol 25 mg orally once daily. 12. Diltiazem CD 180 mg orally once daily. 13. Tylenol #3 one tablet orally every 6 hours as needed for pain. FOLLOWUP: He will follow with me at the office in approximately 1 week. CONDITION: Stable. DISPOSITION: Rehabilitation facility. TIME SPENT: A total of more than 40 minutes were spent during the discharge process. [facility]
[2017-01-21] MEDS: AMARYL PO SCH (11:32)
[2017-01-21 16:05] VITALS: BP 120/66
== END 2017-01-21 16:10 | DRG 309 ==
LOC: P.ED 01:49 → P.MEDSURG 04:14 → P.ICU 11:31 → OBSVTOIN 01-07 13:43 → P.MEDSURG 01-09 19:38 → P.ICU 01-12 09:21 → P.MEDSURG 01-16 21:52
PROVIDERS: ADMIT Internal Medicine; ATTEND Internal Medicine
DX: I48.0 Paroxysmal atrial fibrillation (principal); M62.82 Rhabdomyolysis; D68.59 Other primary thrombophilia; F03.90 Unspecified dementia, unspecified severity, without behavioral disturbance, psychotic disturbance, mood disturbance, and anxiety; J44.0 Chronic obstructive pulmonary disease with (acute) lower respiratory infection; J11.1 Influenza due to unidentified influenza virus with other respiratory manifestations; W06.XXXA Fall from bed, initial encounter; S80.00XA Contusion of unspecified knee, initial encounter; I25.10 Atherosclerotic heart disease of native coronary artery without angina pectoris; I10 Essential (primary) hypertension; E78.5 Hyperlipidemia, unspecified; E11.9 Type 2 diabetes mellitus without complications; Z79.01 Long term (current) use of anticoagulants; Z86.718 Personal history of other venous thrombosis and embolism; Z86.711 Personal history of pulmonary embolism; R29.6 Repeated falls; M47.816 Spondylosis without myelopathy or radiculopathy, lumbar region; N20.0 Calculus of kidney; Z79.84 Long term (current) use of oral hypoglycemic drugs; Z79.899 Other long term (current) drug therapy; J45.909 Unspecified asthma, uncomplicated; J22 Unspecified acute lower respiratory infection; M25.511 Pain in right shoulder
CPT/HCPCS: 36415; 70450; 71010; 72125; 72131; 72192; 80048; 80053; 80305; 81001; 82550; 82553; 82805; 82948; 83605; 83735; 83880; 84443; 84484; 85025; 85027; 85610; 85730; 87040; 87070; 87205; 87804; 93005; 93010; 94640; 94761; 96361; 96374; 96375; G0480; J0282; J1160; J1815; J1940; J2060; J2920; J2930; J3430; J3475; J7030; J7040; J7512; 80320; 97110-GP; 97116-GP; 97530-GP; 97761-GP

== ENCOUNTER 2017-02-13 12:49 | Inpatient (IN) ==
--- NOTE | 2017-02-13 13:09 | EKG Report ---
Test Performed on : 02/13/2017 1:00:34 PM Test Reason : CHEST PAIN Blood Pressure : / mmHG Vent. Rate : 110 BPM Atrial Rate : 110 BPM P-R Int : 000 ms QRS Dur : 080 ms QT Int : 342 ms P-R-T Axes : 000 -24 039 degrees QTc Int : 462 ms Atrial fibrillation. with rapid ventricular response. Abnormal ECG When compared with ECG of 16-JAN-2017 04:34, Atrial fibrillation. has replaced Atrial flutter. Vent. rate has increased BY 38 BPM Non-specific change in ST segment in Inferior leads Unconfirmed Result
--- NOTE | 2017-02-13 13:11 | ED EKG INTERP ---
EKG Interpretation - EKG Time of EKG reading by physician:: 13:00 EKG Read and Signed by:: Quintin Marrero EKG Interpretation (*Must complete 3 of following elements*): Abnormal Rate: 110 Rhythm: atrial fibrillation with rapid ventricular response Comments: abnormal ECG Attestation - Scribe Verification/Attestation Scribe:: Suzanne Odonnell Acting as Scribe for:: Quintin Marrero Scribe documention review:: This chart was documented by a scribe and accurately reflects the service the provider performed and the decisions made by the provider.
--- NOTE | 2017-02-13 13:34 | PROVIDER DOCUMENTATION ---
HPI-Respiratory General - General Source: patient, family () - History of Present Illness-Resp Quality of Pain: reports: tightness Severity in ED: reports: mild Onset/Duration: reports: this morning Timing: reports: still present Exposure: reports: unknown cause Cough Quality/Degree: reports: no cough Current Respiratory Medication Therapy: Initiated see nurses note Modifying Factors: improves with: nothing Associated Symptoms: reports: shortness of breath. denies: chest pain/soreness , cough, dizziness, earache, facial pain, fever/chills, flu-like symptoms, headache, heart racing, hurts to breathe, hyperventilating, lightheadedness, muscle/bodyaches, nasal congestion, nasal drainage, sinus pain, short of breath , sore throat, sweaty, wheezing Similar Symptoms Previously?: No Recently seen or treated by another doctor?: No <Suzanne Odonnell - Last Filed: 02/13/17 16:37> <Quintin Marrero I - Last Filed: 02/13/17 16:44> - General Chief Complaint: Shortness of Breath Stated Complaint: SOB/CHEST PAIN Time Seen by Provider: 02/13/17 13:20 Allergies/Adverse Reactions: Patient Allergies Allergy/AdvReac Type Severity Reaction Status Date / Time aspirin AdvReac Unknown Verified 01/06/17 02:03 Home Medications: Home Medication List Medication Instructions Recorded Confirmed Last Taken Type Atenolol 25 mg PO QPM 03/19/15 01/06/17 2 Days Ago History Gabapentin 300 mg PO QPM 03/19/15 01/06/17 2 Days Ago History Metformin [Glucophage] 1,000 mg PO BID 03/19/15 01/06/17 03/26/16 07:00 History PRAVAstatin [Pravachol] 40 mg PO QHS 03/19/15 01/06/17 2 Days Ago History Tamsulosin [Flomax] 0.4 mg PO DAILY 03/19/15 01/06/17 1 Day Ago History Cholecalciferol (Vitamin D3) 1,000 units PO DAILY 08/18/15 01/06/17 03/26/16 07: 00 History [Vitamin D] Magnesium Cl D.r. [Slow-Mag] 1 tab PO BID 08/18/15 01/06/17 1 Day Ago History 1 TAB AT NOON, PM Vit B12/Pyridoxine/Thiamine [Pv 1 tab PO DAILY 08/18/15 01/06/17 1 Day Ago History Neuro Deni Tablet] Acetaminophen with Codeine 1 each PO Q6H PRN PRN #20 tablet 08/07/16 01/06/17 Unknown Rx [Tylenol with Codeine #3 Tablet] Amiodarone [Cordarone] 200 mg PO DAILY #30 tablet 01/21/17 Unknown Rx Diltiazem C.d. [Cardizem Cd] 180 mg PO DAILY #30 capsule 01/21/17 Unknown Rx Glimepiride 1 mg PO QAM #0 01/21/17 01/06/17 1 Day Ago Rx 1 MG AT NOON AND HS Methylprednisolone [Medrol Dosepak] 4 mg PO DIRECTED #1 package 01/21/17 Unknown Rx Omeprazole 40 mg PO DAILY #0 01/21/17 01/06/17 1 Day Ago Rx Sitagliptin [Januvia] 100 mg PO DAILY #0 tablet 01/21/17 Unknown Rx Trazodone [Desyrel] 100 mg PO QHS #30 tablet 01/21/17 Unknown Rx Warfarin [Coumadin] 4 mg PO QHS #15 tablet 01/21/17 Unknown Rx - History of Present Illness-Resp Nature of Presenting Problem: Pt is 77 y/o M presents to the ED with SOB. Pt's states Pt had SOB this am. Pt's states being admitted on Jan 05. Pt's states Pt was d/c to rehab on Jan 22 and came home Saturday. Pt's states Pt was being seen by OT at home for rehab. Pt denies CP. (Suzanne Odonnell) Review of Systems - Adult - REVIEW OF SYSTEMS - ADULT Constitutional: reports: no symptoms reported Eyes: reports: no symptoms reported Ears, Nose, Mouth & Throat: reports: no symptoms reported Cardiovascular: reports: irregular heart rate (tachy). denies: chest pain, heart murmur Respiratory: reports: shortness of breath. denies: cough, wheezing Gastrointestinal: reports: no symptoms reported Genitourinary: reports: no symptoms reported Musculoskeletal: reports: no symptoms reported Integumentary: reports: no symptoms reported Neurological: reports: no symptoms reported Psychiatric: reports: no symptoms reported Endocrine: reports: no symptoms reported Hematologic/Lymphatic: reports: no symptoms reported Allergic/Immunologic: reports: no symptoms reported All Other Systems: Reviewed and Negative <Alphonso Odonnelli - Last Filed: 02/13/17 16:37> Past History - Adult - PAST MEDICAL HISTORY-ADULT Review of Records: reports: Nursing Assessment Review, Medications Reviewed, Social history reviewed & non-contributory. Major Childhood Illnesses: reports: denies history Cardiovascular: reports: A-Fib, CAD, CHF, HTN, hyperlipidemia Respiratory: reports: asthma Gastrointestinal: reports: GERD Obstetrical/Gynecological: reports: denies history Genitourinary: reports: denies history Musculoskeletal: reports: denies history Neurological: reports: cognitive dysfunction (dementia), dementia Endocrine/Immune: reports: Diabetes Other Conditions: reports: denies history - PRIOR SURGERIES/PROCEDURES Surgical/Procedure History: reports: orthopedic (extremity) (left shoulder ) - PRIOR HOSPITALIZATIONS Prior Hospitalizations: reports: none - IMMUNIZATION STATUS Childhood Immunizations: See Nurse Assessment Flu Vaccine: See Nurse Assessment - FAMILY HISTORY Family History: reviewed, not pertinent - SOCIAL HISTORY Smoking: quit greater than 1 year, cigarettes Substance Use: alcohol Alcohol Use Frequency: occasionally Living Situation: family <Suzanne Odonnell - Last Filed: 02/13/17 16:37> Physical Exam-General - PHYSICAL EXAM-ADULT Initial Vital Signs Reviewed: Yes - CONSTITUTIONAL General Appearance: appears well, alert, no apparent distress - EYES Eyes: PERRL/EOMI, pink conjunctivae, fundi clear, no AV nicking - HEAD, EARS, NOSE, MOUTH & THROAT HENMT: normocephalic/atraumatic, moist mucous membranes, normal ENT inspection, TMs normal, pharynx normal - NECK Neck: non-tender, full range of motion, supple, normal inspection - RESPIRATORY Respiratory: chest non-tender, lungs clear, normal breath sounds, no pleuratic chest pain, no respiratory distress, no accessory muscle use, increased rate - CARDIOVASCULAR Cardiovascular: normal peripheral pulses, no edema, no gallop, no JVD, no murmur , tachycardia - GASTROINTESTINAL (ABDOMEN) Abdominal Exam: normal bowel sounds, non tender, soft, no organomegaly, no pulsatile mass - LYMPHATIC Lymphatic: no adenopathy - MUSCULOSKELETAL Back Exam: normal inspection, no CVA tenderness, no vertebral tenderness Extremity: normal range of motion, non-tender, normal gait, normal inspection, no pedal edema, no calf tenderness, normal capillary refill, swelling (3+ pitting edema bilateral legs) - SKIN Integumentary: normal color, normal turgor, warm/dry - NEUROLOGIC Neurologic: grossly normal - PSYCHIATRIC Psych/Mental Status: normal mood/affect, oriented x 3 <BlasSuzanne - Last Filed: 02/13/17 16:37> Progress - XRAY 1 XRAY: Bilateral XRAY Study: Chest Impression: Normal XRAY Interpretation: no acute disease - CONSULTS/PCP/HOSPITALIST Notification #1 *Consult/PCP/Hospitalist*: Dr. Umana Time Discussed: 16:38 (Dr. Srivastava accepted admit ) Reason/Comments: Dr. Marrero consults with Dr. Umana about admit of Pt Consult Disposition: Admit <Suzanne Odonnell - Last Filed: 02/13/17 16:37> <Quintin Marrero I - Last Filed: 02/13/17 16:44> - PLAN OF CARE/RESULTS Progress/Plan/Lab Results: Orders Category Date Time Status Cardiac Monitoring DIRECTED Care 02/13/17 12:58 Active Oxygen Therapy- ED Nursing DIRECTED Care 02/13/17 12:58 Active Saline Loc NOW Care 02/13/17 12:58 Active CHEST-2 VIEWS [RAD] Stat Exams 02/13/17 12:58 Taken CBC WITH ELECTRONIC DIFF [HEME] Stat Lab 02/13/17 12:58 Ordered CK PROFILE [SP CHEM] Stat Lab 02/13/17 12:58 Ordered COMPREHENSIVE METABOLIC PANEL [CHEM] Stat Lab 02/13/17 12:58 Ordered D-DIMER PL [COAG] Stat Lab 02/13/17 12:58 Ordered MAGNESIUM [CHEM] Stat Lab 02/13/17 12:58 Ordered PRO B-NATRIURETIC PEPTIDE Stat Lab 02/13/17 12:[address] Or[address]IME WITH INR PL [COAG] Stat Lab 02/13/17 12:[address] [COAG] Stat Lab 02/13/17 12:58 Ordered TROPONIN T Stat Lab 02/13/17 12:58 Ordered EKG [EKG] Stat Ther 02/13/17 12:58 Draft Vital Signs - 24 hr 02/13/17 12:55 Temperature 97.2 F L Pulse Rate 118 H Respiratory 22 Rate Blood Pressure 137/85 O2 Sat by Pulse 95 Oximetry Laboratory Tests 02/13/17 13:34 WBC 6.22 RBC 3.42 L Hgb 10.2 L Hct 32.0 L MCV 93.6 MCH 29.8 MCHC 31.9 L RDW Std Deviation 17.3 H Plt Count 229 MPV 10.5 H Immature Gran % (Auto) 0.6 H Neut % (Auto) 78.2 H Lymph % (Auto) 11.6 L Burnett % (Auto) 8.8 Eos % (Auto) 0.5 Baso % (Auto) 0.3 Immature Gran # (Auto) 0.04 Neut # (Auto) 4.86 Lymph # (Auto) 0.72 L Burnett # (Auto) 0.55 Eos # (Auto) 0.03 Baso # (Auto) 0.02 Laboratory Tests 02/13/17 02/13/17 02/13/17 13:34 13:34 13:34 WBC RBC Hgb Hct MCV MCH MCHC RDW Std Deviation Plt Count MPV Immature Gran % (Auto) Neut % (Auto) Lymph % (Auto) Burnett % (Auto) Eos % (Auto) Baso % (Auto) Immature Gran # (Auto) Neut # (Auto) Lymph # (Auto) Burnett # (Auto) Eos # (Auto) Baso # (Auto) PT INR APTT (Factor Assay) D-Dimer Sodium 140 Potassium 4.8 Chloride 102 Carbon Dioxide 28 Anion Gap 10 BUN 14 Creatinine 0.9 Estimated GFR/1.73 m2 > 60 BUN/Creatinine Ratio 16 Glucose 170 H Calculated Osmolality 284 Calcium 8.9 Magnesium 1.6 Total Bilirubin 0.20 AST 19 ALT 14 Alkaline Phosphatase 40 Creatine Kinase 55 Troponin T < 0.010 Ttq-M-Vkkiapmzlqk Pept 2050 H Total Protein 6.4 Albumin 3.8 Globulin 3.0 Albumin/Globulin Ratio 1.0 02/13/17 02/13/17 13:34 13:34 WBC 6.22 RBC 3.42 L Hgb 10.2 L Hct 32.0 L MCV 93.6 MCH 29.8 MCHC 31.9 L RDW Std Deviation 17.3 H Plt Count 229 MPV 10.5 H Immature Gran % (Auto) 0.6 H Neut % (Auto) 78.2 H Lymph % (Auto) 11.6 L Burnett % (Auto) 8.8 Eos % (Auto) 0.5 Baso % (Auto) 0.3 Immature Gran # (Auto) 0.04 Neut # (Auto) 4.86 Lymph # (Auto) 0.72 L Burnett # (Auto) 0.55 Eos # (Auto) 0.03 Baso # (Auto) 0.02 PT 22.4 H INR 1.95 H APTT (Factor Assay) 26.2 D-Dimer 0.95 H Sodium Potassium Chloride Carbon Dioxide Anion Gap BUN Creatinine Estimated GFR/1.73 m2 BUN/Creatinine Ratio Glucose Calculated Osmolality Calcium Magnesium Total Bilirubin AST ALT Alkaline Phosphatase Creatine Kinase Troponin T Tni-L-Gbiqdyhicci Pept Total Protein Albumin Globulin Albumin/Globulin Ratio Laboratory Tests 02/13/17 02/13/17 02/13/17 13:34 13:34 13:34 WBC RBC Hgb Hct MCV MCH MCHC RDW Std Deviation Plt Count MPV Immature Gran % (Auto) Neut % (Auto) Lymph % (Auto) Burnett % (Auto) Eos % (Auto) Baso % (Auto) Immature Gran # (Auto) Neut # (Auto) Lymph # (Auto) Burnett # (Auto) Eos # (Auto) Baso # (Auto) PT INR APTT (Factor Assay) D-Dimer Sodium 140 Potassium 4.8 Chloride 102 Carbon Dioxide 28 Anion Gap 10 BUN 14 Creatinine 0.9 Estimated GFR/1.73 m2 > 60 BUN/Creatinine Ratio 16 Glucose 170 H Calculated Osmolality 284 Calcium 8.9 Magnesium 1.6 Total Bilirubin 0.20 AST 19 ALT 14 Alkaline Phosphatase 40 Creatine Kinase 55 Troponin T < 0.010 Kni-T-Jgenwgndwpv Pept 2050 H Total Protein 6.4 Albumin 3.8 Globulin 3.0 Albumin/Globulin Ratio 1.0 Urine Source 02/13/17 02/13/17 02/13/17 13:34 13:34 14:37 WBC 6.22 RBC 3.42 L Hgb 10.2 L Hct 32.0 L MCV 93.6 MCH 29.8 MCHC 31.9 L RDW Std Deviation 17.3 H Plt Count 229 MPV 10.5 H Immature Gran % (Auto) 0.6 H Neut % (Auto) 78.2 H Lymph % (Auto) 11.6 L Burnett % (Auto) 8.8 Eos % (Auto) 0.5 Baso % (Auto) 0.3 Immature Gran # (Auto) 0.04 Neut # (Auto) 4.86 Lymph # (Auto) 0.72 L [place]ett # (Auto) 0.55 Eos # (Auto) 0.03 Baso # (Auto) 0.02 PT 22.4 H INR 1.95 H APTT (Factor Assay) 26.2 D-Dimer 0.95 H Sodium Potassium Chloride Carbon Dioxide Anion Gap BUN Creatinine Estimated GFR/1.73 m2 BUN/Creatinine Ratio Glucose Calculated Osmolality Calcium Magnesium Total Bilirubin AST ALT Alkaline Phosphatase Creatine Kinase Troponin T Tfe-Y-Gacphxhsroq Pept Total Protein Albumin Globulin Albumin/Globulin Ratio Urine Source CATH Laboratory Tests 02/13/17 02/13/17 02/13/17 13:34 13:34 13:34 WBC RBC Hgb Hct MCV MCH MCHC RDW Std Deviation Plt Count MPV Immature Gran % (Auto) Neut % (Auto) Lymph % (Auto) Burnett % (Auto) Eos % (Auto) Baso % (Auto) Immature Gran # (Auto) Neut # (Auto) Lymph # (Auto) Burnett # (Auto) Eos # (Auto) Baso # (Auto) PT INR APTT (Factor Assay) D-Dimer Sodium 140 Potassium 4.8 Chloride 102 Carbon Dioxide 28 Anion Gap 10 BUN 14 Creatinine 0.9 Estimated GFR/1.73 m2 > 60 BUN/Creatinine Ratio 16 Glucose 170 H Calculated Osmolality 284 Calcium 8.9 Magnesium 1.6 Total Bilirubin 0.20 AST 19 ALT 14 Alkaline Phosphatase 40 Creatine Kinase 55 Troponin T < 0.010 Tmm-N-Outfeasctkf Pept 2050 H Total Protein 6.4 Albumin 3.8 Globulin 3.0 Albumin/Globulin Ratio 1.0 Urine Source Urine Color Urine Clarity Urine pH Ur Specific [place] Urine Protein Urine Ketones Urine Blood Urine Nitrite Urine Bilirubin Urine Urobilinogen Urine Microscopic RBC Urine WBC Ur Epithelial Cells Urine Glucose 02/13/17 02/13/17 02/13/17 13:34 13:34 14:37 WBC 6.22 RBC 3.42 L Hgb 10.2 L Hct 32.0 L MCV 93.6 MCH 29.8 MCHC 31.9 L RDW Std Deviation 17.3 H Plt Count 229 MPV 10.5 H Immature Gran % (Auto) 0.6 H Neut % (Auto) 78.2 H Lymph % (Auto) 11.6 L Burnett % (Auto) 8.8 Eos % (Auto) 0.5 Baso % (Auto) 0.3 Immature Gran # (Auto) 0.04 Neut # (Auto) 4.86 Lymph # (Auto) 0.72 L Burnett # (Auto) 0.55 Eos # (Auto) 0.03 Baso # (Auto) 0.02 PT 22.4 H INR 1.95 H APTT (Factor Assay) 26.2 D-Dimer 0.95 H Sodium Potassium Chloride Carbon Dioxide Anion Gap BUN Creatinine Estimated GFR/1.73 m2 BUN/Creatinine Ratio Glucose Calculated Osmolality Calcium Magnesium Total Bilirubin AST ALT Alkaline Phosphatase Creatine Kinase Troponin T Vrr-F-Bwqmcjzyalc Pept Total Protein Albumin Globulin Albumin/Globulin Ratio Urine Source CATH Urine Color YELLOW Urine Clarity CLEAR Urine pH 7.0 Ur Specific [place] 1.000 Urine Protein NEGATIVE Urine Ketones NEGATIVE Urine Blood NEGATIVE Urine Nitrite NEGATIVE Urine Bilirubin NEGATIVE Urine Urobilinogen NORMAL Urine Microscopic RBC Not Reportable Urine WBC NEGATIVE Ur Epithelial Cells <10 Urine Glucose TRACE(50 mg/dL) A (Suzanne Odonnell) Departure - Departure Time of Disposition Order: 16:37 Certified Medical Emergency: Emergent <Suzanne Odonnell - Last Filed: 02/13/17 16:37> - Departure Time of Disposition Order: 16:43 Certified Medical Emergency: Emergent <Quintin Marrero I - Last Filed: 02/13/17 16:44> - Departure DIAGNOSIS: CHF exacerbation Qualifiers: Congestive heart failure type: unspecified congestive heart failure type Qualified Code(s): I50.9 - Heart failure, unspecified Arrhythmia Qualifiers: Arrhythmia type: unspecified cardiac arrhythmia Qualified Code(s): I49.9 - Cardiac arrhythmia, unspecified Disposition: ADMITTED INPATIENT 09 Condition: Stable Additional Instructions: ED Follow Up Instructions: You have been treated by a care provider in the Emergency Department. These instructions are being provided to you so you can have an understanding of how to care for yourself upon discharge. Upon discharge from the Emergency Department, you are responsible for making arrangements for follow-up care by a physician of your choice. Take all prescribed medications as directed. Return to the Emergency Department immediately for any new or worsening symptoms. You may call the Physician Referral phone number at [phone] to obtain a list of Physicians who are taking new patients. Referrals: Masood Umana MD [Primary Care Provider] - Attestation - Scribe Verification/Attestation Scribe:: Suzanne Odonnell Acting as Scribe for:: Quintin Marrero Scribe documention review:: This chart was documented by a scribe and accurately reflects the service the provider performed and the decisions made by the provider. <Suzanne Odonnell - Last Filed: 02/13/17 16:37> - Physician/ RAMÓN Attestation Patient care was provided by Advanced Practice Provider:: Yes Advanced Practice Provider documentation review:: The Mid-level provider documentation, treatment plan and medical decision making was reviewed by the physician who agrees with all treatment and medical decision making by the MLP. The physician spent face to face time with patient:: Yes Advanced Practice Provider documentation review:: The physician spent face to face time with this patient and agrees with all MLP documentation, treatment, and medical decision making by the MLP. See provider notes for further information. <Quintin Marrero I - Last Filed: 02/13/17 16:44> Physician Attestation - Physician Attestation I, the provider, attest to the following statement:: Quintin Marrero Physician documentation Attestation:: This documentation recorded by the scribe accurately reflects the service I personally performed and the decisions made by me. <Quintin Marrero I - Last Filed: 02/13/17 16:44>
[2017-02-13] MEDS ORDERED: LASIX IV ONE (13:37)
[2017-02-13 13:38] LABS: MANUAL DIFF NEEDED? NO
[2017-02-13 13:42] LABS: BASO% 0.3 % (0.0-0.8); EOS# 0.03 X1000 (0.0-0.7); EOS% 0.5 % (0.0-10.0); HEMOGLOBIN 10.2 g/dL (14.0-18.0); IMM GRAN# 0.04 X1000 (0.0-0.04); IMM GRAN% 0.6 % (0.0-0.5); LYMPH# 0.72 X1000 (1.2-3.4); LYMPH% 11.6 % (20.5-51.1); MCH 29.8 PG (27-31); MCHC 31.9 g/dL (33-37); MCV 93.6 FL (81-99); MONO# 0.55 X1000 (0.11-0.59); MONO% 8.8 % (1.7-9.3); MPV 10.5 FL (7.4-10.4); NEUT% 78.2 % (42.2-75.2); PLT 229 X1000 (130-400); RBC 3.42 XMIL (4.7-6.1)
[2017-02-13 14:05] LABS: AGAP 10; ALBUMIN 3.8 g/dL (3.5-5.0); ALKALINE PHOSPHATASE 40 U/L (32-122); BUN 14 mg/dL (8-22); CALCIUM 8.9 mg/dL (8.8-10.2); CHLORIDE 102 mmol/L (98-107); CK PROFILE 55 U/L (24-204); COSMO 284; GOT 19 U/L (10-34); GPT 14 U/L (10-44); MAGNESIUM 1.6 mg/dL (1.5-2.7); POTASSIUM 4.8 mmol/L (3.5-5.1); SODIUM 140 mmol/L (136-145); TCO2 28 mmol/L (25-35); TOTAL PROTEIN 6.4 g/dL (6.3-8.3)
[2017-02-13 14:22] LABS: INR 1.95 (0.86-1.15); PROTIME 22.4 Seconds (12.1-15.5)
[2017-02-13 14:23] LABS: PTT PL 26.2 Seconds (22.6-43.9)
--- NOTE | 2017-02-13 14:28 | Diag Imaging Result Document ---
PROCEDURE NAME: CHEST-2 VIEWS - 02/13/2017 CHEST X-RAY 2 VIEWS: COMPARISON: 01/12/2017. FINDINGS: Stable device at the anterior left chest wall. The lungs are clear. Heart size and pulmonary vascularity is normal. No pneumothorax or pleural effusion. IMPRESSION: No acute disease or change from prior.
[2017-02-13] MEDS ORDERED: DUONEB (A & A) INH ONE (14:53)
[2017-02-13 14:59] LABS: URINE CULTURE PL NEEDED? NO; URINE SOURCE CATH
[2017-02-13 15:16] LABS: BILIRUBIN URINE NEGATIVE (NEGATIVE); BLOOD URINE NEGATIVE (NEGATIVE); CLARITY CLEAR (CLEAR); COLOR YELLOW; LEUKOCYTES URINE NEGATIVE (NEGATIVE); NITRITE URINE NEGATIVE (NEGATIVE); PROTEIN URINE NEGATIVE (NEGATIVE); UROBILINOGEN URINE NORMAL
[2017-02-13 15:21] LABS: URINE EPITHELIAL CELLS <10 /HPF (<10)
[2017-02-13] MEDS ORDERED: CARDIZEM IV ONE (16:37)
[2017-02-13] MEDS ORDERED: TYLENOL WITH CODEINE #3 PO PRN (19:21)
[2017-02-13] MEDS ORDERED: GLUCOPHAGE PO SCH (21:00)
[2017-02-13] MEDS ORDERED: COUMADIN PO SCH (21:00)
[2017-02-13] MEDS ORDERED: PRAVACHOL PO SCH (21:00)
[2017-02-13] MEDS ORDERED: TENORMIN PO SCH (21:00)
[2017-02-13] MEDS ORDERED: NEURONTIN PO SCH (21:00)
[2017-02-13] MEDS: SLOW-MAG PO SCH (21:00)
[2017-02-13] MEDS ORDERED: DESYREL PO SCH (21:00)
[2017-02-14] MEDS ORDERED: PRILOSEC PO SCH (07:00)
[2017-02-14 07:21] LABS: AGAP 9; BUN 16 mg/dL (8-22); CALCIUM 8.8 mg/dL (8.8-10.2); CHLORIDE 101 mmol/L (98-107); COSMO 286; MAGNESIUM 1.7 mg/dL (1.5-2.7); POTASSIUM 4.3 mmol/L (3.5-5.1); SODIUM 143 mmol/L (136-145); TCO2 32 mmol/L (25-35)
[2017-02-14] MEDS ORDERED: AMARYL PO SCH (08:00)
--- NOTE | 2017-02-14 08:02 | HISTORY AND PHYSICAL ---
CHIEF COMPLAINT: Shortness of breath. HISTORY OF PRESENT ILLNESS: Mr. Adams is a 77-year-old gentleman who was discharged home late last month after having a lengthy admission for influenza infection with bronchitis and chronic obstructive pulmonary disease exacerbation. He also had paroxysmal atrial fibrillation with rapid ventricular rate at the time. He was to rehab and 5 days before this admission. He was discharged from rehab center. He has been having shortness of breath since yesterday morning, because of which he had to be brought into the emergency room for further evaluation. The patient denied having any chest pain or any other complaint. He has been a poor historian, however. PAST MEDICAL HISTORY: 1. Paroxysmal atrial fibrillation. 2. Coronary artery disease. 3. Type 2 diabetes mellitus. 4. Hypertension. 5. Dyslipidemia. 6. 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 7. Osteoarthritis. 8. Insomnia. 9. COPD. 10. Erectile dysfunction. ALLERGIES: No known drug allergies reported. FAMILY HISTORY: Noncontributory. SOCIAL HISTORY: The patient has previously smoked tobacco. He used to smoke 1 pack of cigarettes per day. He quit smoking in 1987 after having about 150 pack years of cigarette smoking. He denies using any recreational drugs. He also does not drink any alcohol. CURRENT HOME MEDICATIONS: 1. Trazodone 100 mg orally once daily at bedtime for insomnia. 2. Warfarin 4 mg orally once daily at bedtime. 3. Omeprazole 40 mg orally once daily in the morning. 4. Metformin 1 g orally twice daily. 5. Tamsulosin 0.4 mg orally once daily. 6. Januvia 100 mg orally once daily. 7. Pravastatin 40 mg orally once daily at bedtime. 8. Glyburide 1 mg orally once daily in the morning. 9. Gabapentin 300 mg orally once daily at bedtime. 10. Atenolol 25 mg orally once daily. 11. Diltiazem CD 180 mg orally once daily. 12. Tylenol #3, 1 tab orally every 6 hours as needed for pain. REVIEW OF SYSTEMS: A full review of system could not be obtained since patient is a poor historian. PHYSICAL EXAMINATION: VITAL SIGNS: Temperature 97.5 degrees, pulse 70 per minute, respiratory rate 22 per minute, blood pressure 117/61, pulse ox 100% on room air. GENERAL: Patient is alert and oriented x3. She does not appear to be in any acute distress at this time. He does appear to be somewhat weak. HEENT: No acute findings noted. NECK: Supple without any thyromegaly. LYMPHATICS: No lymphadenopathy noted in the neck region. CHEST: Chest wall is nontender. CARDIOVASCULAR: First and second heart sounds are audible without murmurs or gallops. RESPIRATORY: System no respiratory distress noted. Bilateral lung air entry is moderately decreased with a few coarse rales present bilaterally on auscultation. No rhonchi or wheezing are present. GASTROINTESTINAL: Abdomen is soft and nondistended. It is soft and nontender on palpation. No viscera are palpable and normal bowel sounds are present. MUSCULOSKELETAL SYSTEM: No deformities are present. NEUROLOGIC: No focal deficits are present. PSYCHIATRIC: Normal affect noted. GENITOURINARY: Deferred. INTEGUMENTARY: Skin is warm, dry, and without any rash. DIAGNOSTIC DATA: CBC shows hemoglobin of 10.2 and hematocrit 32.0. The rest of the CBC is nondiagnostic. INR is noted to be 1.95 and D-dimer is slightly elevated at 0.95. Chemistry shows glucose of 170. The rest of the comprehensive metabolic panel is nondiagnostic. Cardiac enzymes are negative and proBNP was elevated at 2050. Urinalysis is negative. Chest x-ray did not show any acute pulmonary disease. ECG obtained at the emergency room showed atrial fibrillation with rapid ventricular response of 110 beats per minute. IMPRESSION: 1. Paroxysmal atrial fibrillation with rapid ventricular response. 2. Acute chronic obstructive pulmonary disease exacerbation. 3. Multiple comorbid conditions including coronary artery disease, type 2 diabetes and hypertension. PLAN: The patient has been admitted to the medical/surgical floor on telemetry and I am going to continue all of his routine home medications. He received furosemide 80 mg IV since he was reportedly having leg swelling and was having acute CHF exacerbation at the emergency room, but I really do not believe that he was in any acute CHF exacerbation, since his chest x-ray has been reportedly normal. Also, the rales supported at the emergency room are kind of coarse rales and are because of sputum production that needs chest physical therapy, which will improve. I am also going to give him albuterol and Atrovent nebulization treatments every 6 hours and restart him on amiodarone 200 mg daily because of his atrial fibrillation. He has diabetes and I am going to continue his metformin along with glimepiride but also start him on insulin as per sliding scale. He has been getting diltiazem along with atenolol which will be continued. I am also going to order general physical therapy and I will try to keep this admission as short as possible, and do as much physical therapy as possible to make sure that he can regain strength. It is obvious that he has not fully recovered from his previous admission. MTDD
[2017-02-14 08:49] LABS: BE 8.3 mmoll (-3.0-3.0); BLOOD TYPE ARTERIAL; DRAW SITE L BRACHIAL; METHB 1.1 % (0.0-1.5); O2(CT) 15.4 mL/dL (15.0-23.0); PO2(98.6) 169 mmHg (60-100); SAMPLE BLOOD; SAO2 99.7 % (95.0-100.0); THB 11.1 g/dL (11.5-17.4); pH(98.6) 7.25 (7.35-7.45)
[2017-02-14 08:56] LABS: ALLEN TEST NO; MODALITY NRB; PCO2(98.6) 87 mmHg (35-45)
--- NOTE | 2017-02-14 08:57 | EKG Report ---
Test Performed on : 02/14/2017 08:37:03 AM Test Reason : Atrial Fibrillation Blood Pressure : / mmHG Vent. Rate : 132 BPM Atrial Rate : 053 BPM P-R Int : 000 ms QRS Dur : 106 ms QT Int : 390 ms P-R-T Axes : 000 -57 076 degrees QTc Int : 577 ms Undetermined rhythm Left axis deviation Incomplete right bundle branch block ST & T wave abnormality, consider anterolateral ischemia Abnormal ECG When compared with ECG of 13-FEB-2017 13:00, Current undetermined rhythm precludes rhythm comparison, needs review Incomplete right bundle branch block is now present Unconfirmed Result
[2017-02-14] MEDS ORDERED: FLOMAX PO SCH (09:00)
[2017-02-14] MEDS ORDERED: CORDARONE PO SCH (09:00)
[2017-02-14] MEDS ORDERED: VITAMIN D PO SCH (09:00)
[2017-02-14] MEDS ORDERED: CARDIZEM CD PO SCH (09:00)
[2017-02-14] MEDS ORDERED: FOLTX PO SCH (09:00)
[2017-02-14] MEDS ORDERED: JANUVIA PO SCH (09:00)
[2017-02-14] MEDS: DUONEB (A & A) INH SCH ×4 (09:00→22:01)
--- NOTE | 2017-02-14 09:10 | Diag Imaging Result Document ---
PROCEDURE NAME: CHEST-PORTABLE - 02/14/2017 PORTABLE CHEST: COMPARISON: 02/13/2017. FINDINGS: The lungs are well expanded. The heart is not enlarged. The vessels are not distended. No pneumonia. No pleural effusions identified. Small mechanical device overlies the lower left chest. This is unchanged. IMPRESSION: No pneumonia identified.
[2017-02-14] MEDS: HUMALOG DOSE (PARKWAY) SUBQ SCH ×4 (11:03→21:23)
[2017-02-14] MEDS: GLUCOPHAGE PO SCH ×2 (13:51→17:57)
[2017-02-14] MEDS: SLOW-MAG PO SCH (13:55)
[2017-02-14] MEDS: ZOSYN 3.375 GM/NS 50 ML IV SCH ×2 (17:58→20:12)
[2017-02-14 20:13] LABS: ALLEN TEST YES; BE 8.4 mmoll (-3.0-3.0); BLOOD TYPE ARTERIAL; DRAW SITE R BRACHIAL; METHB 1.7 % (0.0-1.5); O2(CT) 14.1 mL/dL (15.0-23.0); PO2(98.6) 65 mmHg (60-100); SAMPLE BLOOD; SAO2 94.6 % (95.0-100.0); THB 10.9 g/dL (11.5-17.4); pH(98.6) 7.31 (7.35-7.45)
[2017-02-14 20:15] LABS: MODALITY BI PAP
[2017-02-14 20:17] LABS: PCO2(98.6) 73 mmHg (35-45)
[2017-02-14] MEDS: CARDIZEM 100 MG/NS 100 ML IV SCH (21:21)
[2017-02-14] MEDS: LOVENOX SUBQ SCH (21:22)
[2017-02-15] MEDS: ZOSYN 3.375 GM/NS 50 ML IV SCH ×5 (00:51→23:24)
[2017-02-15] MEDS: DUONEB (A & A) INH SCH ×5 (03:31→23:10)
[2017-02-15 03:51] LABS: ALLEN TEST YES; BE 9.4 mmoll (-3.0-3.0); BLOOD TYPE ARTERIAL; DRAW SITE R RADIAL; METHB 1.5 % (0.0-1.5); O2(CT) 9.9 mL/dL (15.0-23.0); PO2(98.6) 155 mmHg (60-100); SAMPLE BLOOD; SAO2 98.9 % (95.0-100.0); SRATE 4 BPM; pH(98.6) 7.32 (7.35-7.45)
[2017-02-15 03:52] LABS: MODALITY BI PAP
[2017-02-15 03:57] LABS: PCO2(98.6) 71 mmHg (35-45)
--- NOTE | 2017-02-15 05:28 | EKG Report ---
Test Performed on : 02/14/2017 7:49:22 PM Test Reason : A-fib w RVR Blood Pressure : / mmHG Vent. Rate : 139 BPM Atrial Rate : 141 BPM P-R Int : 000 ms QRS Dur : 090 ms QT Int : 302 ms P-R-T Axes : 000 -68 -70 degrees QTc Int : 459 ms Undetermined rhythm Left axis deviation Low voltage QRS Inferior infarct , age undetermined Abnormal ECG When compared with ECG of 14-FEB-2017 08:38, (Unconfirmed) Current undetermined rhythm precludes rhythm comparison, needs review Inferior infarct is now present ST now depressed in Inferior leads Nonspecific T wave abnormality now evident in Inferior leads Confirmed by [place], [place] ([id number]) on 02/15/2017 4:30:43 PM
[2017-02-15 05:29] LABS: BASO% 0.2 % (0.0-0.8); HEMATOCRIT 34.7 % (42.0-52.0); HEMOGLOBIN 10.6 g/dL (14.0-18.0); LYMPH# 0.45 X1000 (1.2-3.4); LYMPH% 7.1 % (20.5-51.1); MANUAL DIFF NEEDED? YES; MCH 29.6 PG (27-31); MCHC 30.5 g/dL (33-37); MCV 96.9 FL (81-99); MONO% 11.1 % (1.7-9.3); MPV 10.3 FL (7.4-10.4); NEUT% 81.6 % (42.2-75.2); PLT 233 X1000 (130-400); RBC 3.58 XMIL (4.7-6.1)
[2017-02-15 05:42] LABS: AGAP 11; BUN 19 mg/dL (8-22); CALCIUM 8.8 mg/dL (8.8-10.2); CHLORIDE 99 mmol/L (98-107); COSMO 297; POTASSIUM 4.6 mmol/L (3.5-5.1); SODIUM 145 mmol/L (136-145); TCO2 35 mmol/L (25-35)
[2017-02-15 05:47] LABS: BANDS 34 % (0-1); LYMPHS 12 % (21-51); MONO 12 % (1-9)
[2017-02-15] MEDS: HUMALOG DOSE (PARKWAY) SUBQ SCH ×2 (06:19→11:26)
[2017-02-15] MEDS: LOVENOX SUBQ SCH (07:56)
[2017-02-15] MEDS ORDERED: LASIX IV ONE (08:00)
[2017-02-15] MEDS: CARDIZEM 100 MG/NS 100 ML IV SCH ×2 (13:16→20:16)
[2017-02-15] MEDS: LANOXIN IV SCH ×2 (14:16→16:11)
--- NOTE | 2017-02-15 14:34 | CONSULTATION ---
DATE OF CONSULTATION: 02/15/2017 REASON FOR CONSULTATION: Cardiology consulted for atrial fibrillation with rapid ventricular rate. HISTORY OF PRESENT ILLNESS: The patient is admitted with shortness of breath and bronchitis. Mr. Adams is a 77-year-old gentleman who was discharged home late last month after having admission for influenza infection, bronchitis, COPD, and also has paroxysmal atrial fibrillation. He had been at rehabilitation for 5 days and he comes with complaints of increasing shortness of breath associated with cough which is mucopurulent at times. No hemoptysis. Of note is that he was transferred from [facility] to [facility]. He had a catheter placed and he has hematuria. He denies chest pain. PAST MEDICAL HISTORY: 1. Paroxysmal atrial fibrillation. 2. Pulmonary embolism. 3. DVT in the past. 4. Antithrombin III deficiency. 5. Osteoarthritis. 6. COPD. 7. Erectile dysfunction. 8. Insomnia. 9. Diabetes. 10. Gastroesophageal reflux disease. REVIEW OF SYSTEMS: A 14-point review of systems was done.Gastrointestinal: There is no history of nausea, vomiting, or diarrhea. Genitourinary: As above. Respiratory: As above. Endocrine: Stable. SOCIAL HISTORY: The patient has a history of smoking tobacco. Used to smoke 1 pack of cigarettes a day. He quit in 1987, having smoked for many years. There is no history of alcohol abuse. HOME MEDICATIONS: Trazodone 100, Coumadin 4 as directed, omeprazole 40, metformin 1, tamsulosin 0.4, Januvia 100, pravastatin 40, glyburide 1, gabapentin 300, diltiazem 180, atenolol 25. PHYSICAL EXAMINATION: Vital Signs: Blood pressure was 117/61. Cardiovascular: Normal jugular venous pressure. First and 2nd heart sounds were heard. There is no S3 gallop. Respiratory: Bilateral expiratory wheeze. Abdomen: Soft, nontender. There was no guarding or rigidity. Bowel sounds were heard. Central Nervous System: Alert. Was moving all 4 extremities. Detailed examination not performed. LABORATORY AND DIAGNOSTIC TESTS: Hemoglobin 10, hematocrit 32. Electrocardiogram revealed atrial fibrillation with rapid ventricular rate. On telemetry, his heart rate is 130 to 140. He is on a Cardizem drip. ASSESSMENT AND PLAN: 1. Mr. Jerad Adams is a gentleman with history of paroxysmal atrial fibrillation, history of antithrombin III deficiency, on anticoagulation therapy for pulmonary embolism in the past, hyperlipidemia, and diabetes, who is admitted with cough and has chronic obstructive pulmonary disease with chronic obstructive pulmonary disease exacerbation. He is on Zosyn. 2. From a cardiac standpoint, he has been restarted on amiodarone. He was on Cardizem. Given his increased rate, we will put him on Cardizem drip and adjust accordingly. 3. He has a catheter placed in his bladder and he has liz hematuria at the moment of unknown etiology, maybe traumatic as well. Given this, we will hold the Lovenox for the present time. However, he is at a high risk for having deep vein thrombosis and anticoagulation therapy. Once his urine clears up, we need to reinstitute anticoagulation therapy. 4. Diabetes. Continue with current medications. 5. His last echocardiogram in 2014 revealed ejection fraction which was a 50% to 55%. Last stress test in 2015 was unremarkable. 6. Hypercholesterolemia. Continue with his medications. Thank you for the consult. We will follow the hospital course.
[2017-02-15] MEDS: CORDARONE PO SCH (14:46)
[2017-02-15] MEDS: LASIX IV SCH ×2 (14:46→19:52)
--- NOTE | 2017-02-15 15:09 | CONSULTATION ---
DATE OF CONSULTATION: 02/15/2017 REQUESTING PHYSICIAN: Dr. Umana. REASON FOR CONSULTATION: Respiratory failure. HISTORY OF PRESENT ILLNESS: Mr. Jerad Adams is a 77-year-old, white male with a greater than 100 pack-year history for tobacco, diabetes mellitus, coronary artery disease, with paroxysmal atrial fibrillation, who has had increasing decline in his cardiopulmonary status over the last 6-8 weeks. The patient was admitted to the hospital in December for influenza exacerbation complicated by atrial fibrillation with rapid ventricular response. The patient was discharged to rehab. Prior to returning to the hospital, he has had increasing shortness of breath with increasing peripheral edema. The patient has audible rhonchi. Family reports that while in rehab he underwent speech therapy evaluation which indicated aspiration, and he was cautioned about eating and drinking at the same meal (?) PAST MEDICAL HISTORY PROBLEM LIST: 1. COPD. The patient has significant tobacco history. 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 They were unaware of the diagnosis of COPD. 2. Atrial fibrillation with rapid ventricular response. 3. Coronary artery disease. 4. Type 2 diabetes mellitus. 5. Dyslipidemia. 6. Hypertension. 7. Anti thrombin 3 deficiency with prior pulmonary thromboembolism on chronic anticoagulation. 8. Osteoarthritis. 9. Insomnia. 10. Erectile dysfunction. SOCIAL HISTORY: Prior tobacco use as per HPI. He has a very attentive family. REVIEW OF SYSTEMS: Notable for increasing shortness of breath, chronic cough with sputum production, increasing edema. PHYSICAL EXAMINATION: General: Reveals a well-developed, well-nourished, white male, who is a difficult historian. Vital signs: Blood pressure 137/97, heart rate 138, respiratory rate 32, oxygen saturation 99% on 3 L per nasal cannula. HEENT: Pupils are equal and reactive. Oropharynx is clear. Neck: Supple. Chest: Reveals audible rhonchi which the patient cannot clear with cough. There is prolonged expiratory phase with distant wheezing. Cardiac Exam: Increased rate. Irregular rhythm. Abdomen: Soft. Extremities: Reveal trace to 1+ pretibial edema. LABORATORIES: Arterial blood gas reveals pH 7.32, pCO2 of 71, PO2 of 155. Sodium 145, potassium 4.6, chloride 99, bicarbonate 35. BUN 19, creatinine 1.0. White blood count 6.31, hemoglobin 10.6, platelet count 233,000. X-RAYS: Chest x-ray reveals hyperexpansion with flattening of the diaphragms, no acute disease otherwise present. IMPRESSION: A 77-year-old white male with chronic obstructive pulmonary disease, acute hypoxemic and acute respiratory failure, audible rhonchi on exam, recurrent intermittent aspiration, atrial fibrillation with rapid ventricular response with hypercoagulable state, and prior deep vein thrombosis and pulmonary emboli. The patient has had a clear clinical decline over the last 6-8 weeks. Currently, he has acute hypoxemic and hypercapnic respiratory failure with significant bronchospasm. I suspect his decompensation is associated with uncontrolled atrial fibrillation, along with recurrent intermittent minor aspiration events. His overall prognosis is guarded. RECOMMENDATIONS: 1. Cardiology consultation as you are doing. He may require additional medications to control his heart rate. 2. Increase nebulizer therapy to q. 4 hours. 3. Cycle BiPAP as needed. 4. Ask speech therapy to evaluate patient for intermittent aspiration. 5. Try small diuretic trial. 6. Additional recommendations pending hospital course.
[2017-02-15] MEDS: HUMALOG SUBQ SCH ×2 (16:15→20:00)
[2017-02-15] MEDS ORDERED: HALDOL PO PRN (19:33)
[2017-02-15] MEDS: DESYREL PO SCH ×2 (19:52→23:12)
[2017-02-16] MEDS: CARDIZEM 100 MG/NS 100 ML IV SCH ×4 (00:47→22:55)
[2017-02-16 03:41] LABS: ALLEN TEST YES; BE 18.1 mmoll (-3.0-3.0); BLOOD TYPE ARTERIAL; DRAW SITE R BRACHIAL; METHB 1.2 % (0.0-1.5); O2(CT) 12.6 mL/dL (15.0-23.0); PO2(98.6) 111 mmHg (60-100); SAMPLE BLOOD; SAO2 99.8 % (95.0-100.0); SRATE 4 BPM; THB 9.1 g/dL (11.5-17.4); pH(98.6) 7.45 (7.35-7.45)
[2017-02-16 03:44] LABS: MODALITY VENTIMASK
[2017-02-16 03:45] LABS: PCO2(98.6) 64 mmHg (35-45)
[2017-02-16] MEDS: DUONEB (A & A) INH SCH ×6 (03:54→23:38)
[2017-02-16] MEDS: ZOSYN 3.375 GM/NS 50 ML IV SCH ×4 (05:17→22:32)
[2017-02-16 05:21] LABS: MANUAL DIFF NEEDED? NO
[2017-02-16 05:24] LABS: BASO% 0.2 % (0.0-0.8); EOS# 0.01 X1000 (0.0-0.7); EOS% 0.2 % (0.0-10.0); HEMATOCRIT 29.8 % (42.0-52.0); HEMOGLOBIN 9.3 g/dL (14.0-18.0); IMM GRAN# 0.02 X1000 (0.0-0.04); IMM GRAN% 0.4 % (0.0-0.5); LYMPH# 0.49 X1000 (1.2-3.4); LYMPH% 8.8 % (20.5-51.1); MCH 29.6 PG (27-31); MCHC 31.2 g/dL (33-37); MCV 94.9 FL (81-99); MONO% 10.8 % (1.7-9.3); MPV 10.4 FL (7.4-10.4); NEUT% 79.6 % (42.2-75.2); PLT 213 X1000 (130-400); RBC 3.14 XMIL (4.7-6.1)
[2017-02-16 06:21] LABS: AGAP 11; BUN 19 mg/dL (8-22); CALCIUM 9.3 mg/dL (8.8-10.2); CHLORIDE 95 mmol/L (98-107); COSMO 295; POTASSIUM 3.5 mmol/L (3.5-5.1); SODIUM 144 mmol/L (136-145); TCO2 38 mmol/L (25-35)
[2017-02-16] MEDS: HUMALOG SUBQ SCH ×5 (06:28→22:32)
[2017-02-16] MEDS: CORDARONE PO SCH (08:37)
--- NOTE | 2017-02-16 09:09 | Diag Imaging Result Document ---
PROCEDURE NAME: CHEST-PORTABLE - 02/16/2017 PORTABLE CHEST X-RAY: COMPARISON: 02/14/2017. FINDINGS: There is new ill-defined left basilar infiltrate. Heart size is normal. The right lung is clear. IMPRESSION: New right basilar infiltrate concerning for pneumonia or aspiration.
[2017-02-16] MEDS ORDERED: MAGNESIUM SULFATE 2 GM/S.W.I. 50 ML IV ONE (09:24)
[2017-02-16] MEDS ORDERED: SOLU-MEDROL IV ONE (09:28)
[2017-02-16] MEDS: LOVENOX SUBQ SCH (10:02)
[2017-02-16] MEDS: ASTELIN NASAL SPRAY NAS SCH ×3 (10:38→22:20)
--- NOTE | 2017-02-16 11:15 | PROGRESS NOTE ---
DATE: 02/16/2017 PRIMARY CARE PHYSICIAN: Dr. Umana. SUBJECTIVE: Patient evaluated with minor issue of sleeplessness overnight and multiple pulled IVs. Required use of trazodone with a p.r.n. Haldol that was not used. States after the trazodone he did sleep well. OBJECTIVE: Vital signs: Temperature 99.5, pulse 96 to 130, and blood pressure 133/55, O2 sat 100% on 3 L nasal cannula. I's and O's damage negative fluid balance of approximately 3 L per [place]. PHYSICAL EXAMINATION: General: A confused and disoriented male in mild to moderate respiratory distress. HEENT: Bilateral ocular conjunctivae are erythematous with swelling noted. Nares display large amounts of thick, clear drainage. OP is clear with erythema noted in the oropharynx. Patient's mouth is open, mouth breathing. Neck: JVD is normal. Chest: Clear to auscultation anteriorly with transmitted upper airway sounds. Abdomen: Soft, nontender. Bowel sounds are present x4 quadrants. CV: Shows tachycardia with irregularly irregular rate, no overt murmurs appreciated. Neurological: The patient is responding to stimuli but with slowed overall affect. Alert and oriented x1. LABORATORY DATA: WBC 5.56 with an hemoglobin and hematocrit of 9.2 and 29.8, MCV of 94.9, platelet count of 213. Neutrophils from 81 to 79 and note segs of 40 with bands of 34. D-dimer 02/13 was 0.95. ABG today improved with a pH of 7.45, pCO2 of 64, pO2 of 111, with a bicarb high at 39.1, total hemoglobin while on a Ventimask. Sodium 144 with a chloride 95, CO2 of 38. POC glucose ranging from approximately 91 to 221, magnesium 1.7. IMAGING: Chest x-ray performed this a.m., 02/16/2017, shows a right basilar infiltrate concerning for a pneumonia versus aspiration, aspiration most likely clinically. ASSESSMENT AND PLAN: A 77-year-old white male with: 1. Paroxysmal atrial fibrillation. 2. History of antithrombin III deficiency, currently anticoagulated. 3. History of pulmonary embolism. 4. Chronic obstructive pulmonary disease exacerbation with concomitant high likelihood of aspiration. The patient is currently on Zosyn. Will add some Mucinex via nebulizer and some nasal clearance to improve overall aeration. 5. Diabetes. Continue current medicines. 6. Volume status. The patient has currently has a recent echo that is within normal limits. We will continue to monitor alongside Cardiology regarding any changes in the patient's overall status. 7. Acute hypoxemia with acute respiratory failure. Continue nebulizers as above. Continue the BiPAP, ABGs daily. Continue to monitor today. The patient is at a high risk for aspiration. Make sure that we continue aerobic coverage for likely aspiration.
[2017-02-16] MEDS: MUCOMYST 20% INH SCH ×2 (11:42→20:30)
[2017-02-16] MEDS ORDERED: INSULIN PEN NEEDLES ONE (19:12)
[2017-02-16] MEDS: DESYREL PO SCH ×2 (19:14→22:20)
[2017-02-16] MEDS: LANTUS SUBQ SCH ×2 (19:14→22:20)
[2017-02-17] MEDS: DUONEB (A & A) INH SCH ×6 (02:56→22:38)
[2017-02-17 03:41] LABS: ALLEN TEST YES; BE 18.5 mmoll (-3.0-3.0); BLOOD TYPE ARTERIAL; DRAW SITE R RADIAL; METHB 1.7 % (0.0-1.5); O2(CT) 13.9 mL/dL (15.0-23.0); PO2(98.6) 237 mmHg (60-100); SAMPLE BLOOD; SAO2 99.3 % (95.0-100.0); THB 9.8 g/dL (11.5-17.4); pH(98.6) 7.45 (7.35-7.45)
[2017-02-17 03:43] LABS: MODALITY BI PAP
[2017-02-17 03:44] LABS: PCO2(98.6) 65 mmHg (35-45)
[2017-02-17] MEDS: CARDIZEM 100 MG/NS 100 ML IV SCH ×4 (03:56→20:05)
[2017-02-17] MEDS: ZOSYN 3.375 GM/NS 50 ML IV SCH ×4 (04:46→23:38)
[2017-02-17 05:18] LABS: BASO% 0.1 % (0.0-0.8); HEMATOCRIT 29.4 % (42.0-52.0); HEMOGLOBIN 9.3 g/dL (14.0-18.0); IMM GRAN# 0.04 X1000 (0.0-0.04); IMM GRAN% 0.6 % (0.0-0.5); LYMPH# 0.31 X1000 (1.2-3.4); LYMPH% 4.6 % (20.5-51.1); MANUAL DIFF NEEDED? YES; MCH 29.6 PG (27-31); MCHC 31.6 g/dL (33-37); MCV 93.6 FL (81-99); MONO% 7.4 % (1.7-9.3); MPV 10.7 FL (7.4-10.4); NEUT% 87.3 % (42.2-75.2); PLT 223 X1000 (130-400); RBC 3.14 XMIL (4.7-6.1)
[2017-02-17] MEDS: HUMALOG SUBQ SCH ×4 (06:21→20:10)
[2017-02-17 07:06] LABS: AGAP 10; ALBUMIN 3.1 g/dL (3.5-5.0); ALKALINE PHOSPHATASE 54 U/L (32-122); BUN 16 mg/dL (8-22); CALCIUM 9.5 mg/dL (8.8-10.2); CHLORIDE 95 mmol/L (98-107); COSMO 299; GOT 12 U/L (10-34); GPT 14 U/L (10-44); MAGNESIUM 1.9 mg/dL (1.5-2.7); POTASSIUM 3.3 mmol/L (3.5-5.1); SODIUM 143 mmol/L (136-145); TCO2 38 mmol/L (25-35); TOTAL BILIRUBIN 0.42 mg/dL (0.20-1.00); TOTAL PROTEIN 6.1 g/dL (6.3-8.3)
[2017-02-17] MEDS: MUCOMYST 20% INH SCH ×2 (07:25→19:12)
[2017-02-17 08:04] LABS: BANDS 8 % (0-1); LYMPHS 4 % (21-51); MONO 6 % (1-9)
[2017-02-17] MEDS: CORDARONE PO SCH (08:34)
[2017-02-17] MEDS: ASTELIN NASAL SPRAY NAS SCH ×2 (08:42→20:10)
[2017-02-17] MEDS: LOVENOX SUBQ SCH (09:42)
[2017-02-17] MEDS ORDERED: LANTUS SUBQ SCH (10:22)
[2017-02-17] MEDS: CLINIMIX E 4.25%-5% SOLUTION 1,000 ML IV SCH (10:53)
[2017-02-17] MEDS ORDERED: LOVENOX SUBQ ONE (11:30)
--- NOTE | 2017-02-17 11:33 | PROGRESS NOTE ---
DATE: 02/17/2017 PRIMARY CARE PHYSICIAN: Dr. Masood Umana. SUBJECTIVE: Overnight, the patient had issues maintaining the BiPAP mask in place. States that he cannot have the BiPAP in over an hour. Has had to be constantly reconnected to the mask with reported increased restlessness and baseline agitation. OBJECTIVE: Vital Signs: Temperature 98.7 degrees, pulse 113, respirations 20, blood pressure 119/85, O2 saturation 92% on 3 L nasal cannula. Is and Os show an overall negative fluid balance. Patient taking bites only with noted aspiration. Physical Examination: General: Shows a further deteriorated, male with mild to moderate distress and overt confusion. Lungs: Show increased bronchial wheezing and increased rhonchi worsened at the bases. CV: Irregularly irregular with a rate greater than 100 and a murmur heard at the right upper sternal border. Abdomen: Protuberant but soft. Bowel sounds are noted. Extremities: No cyanosis, clubbing, or edema noted. Neurological: Cranial nerves 2-12 are grossly intact. Labs: Demonstrate a WBC of 6.72, with a hemoglobin and hematocrit of 9.3 and 29.4 respectively, MCV 93.6, and a platelet count of 223,000. Note, pH has now normalized at 7.45, pCO2 is 65, primarily unchanged from yesterday's measurement on the BiPAP versus Ventimask. Bicarb is at the same, showing combined metabolic and respiratory acidosis that is compensated. Lactate 1.3. Potassium low at 3.3, glucose ranging from 221 up to 339. BNP down at 1999. Total protein 6.1. ASSESSMENT AND PLAN: Mr. Adams is a 77-year-old, unfortunate, white male with: 1. Paroxysmal atrial fibrillation. Currently, rate is not controlled on digoxin and amiodarone. Cardiology following. 2. History of antithrombin III deficiency. Again, anticoagulated. 3. History of pulmonary embolism. See #2 and #1. 4. Chronic obstructive pulmonary disease with acute hypoxemia, and acute on chronic respiratory therapy. Continue nebulizers. Add Mucomyst and follow concurrently. 5. Hypokalemia. We will replete and follow. Patient is still demonstrating lack of appropriate fluids. 6. For restlessness, agitation, altered mental status, we will increase both the availability and the frequency of the anxiolytics along with having Haldol to be used as necessary. Avoid any further steroid doses. 7. Aspiration pneumonia, notably worsened. Continue the Zosyn for the said condition and coverage. Continue to follow. 8. Diabetes mellitus. We will increase insulin dose to 25 units subcutaneous at bedtime and increase to a moderate insulin sliding scale. We will go ahead and allow the patient to have a little bit of protein and Clinimix x1 bag, and follow up so that we can fully hydrate the patient and monitor closely. 9. The patient will be followed daily and still maintained in the CICU due to heart issues.
[2017-02-17] MEDS: POTASSIUM CHLORIDE 20 MEQ/SWI 100 ML IV SCH ×2 (11:54→13:57)
[2017-02-17] MEDS: CARDIZEM PO SCH ×2 (13:57→17:13)
--- NOTE | 2017-02-17 14:20 | PROGRESS NOTE ---
DATE: 02/17/2017 SUBJECTIVE: Patient continues with some shortness of breath and wheezing. There is no chest pain. He remains in atrial fibrillation. Hematuria appears to have cleared. OBJECTIVE: Vital Signs: Blood pressure 119/85, heart rate 113 and irregular. ECG monitor showing atrial fibrillation. Neck: Supple without jugular venous distention. Chest: Auscultation reveals scattered expiratory wheezes and a few rhonchi. Cardiac: Irregular rate and rhythm with somewhat distant heart sounds. There is no evidence of peripheral edema. IMPRESSIONS: 1. Persistent atrial fibrillation. 2. Chronic obstructive pulmonary disease with exacerbation. 3. History of pulmonary embolism and deep vein thrombosis in the past. 4. Antithrombin 3 deficiency. 5. Diabetes mellitus. RECOMMENDATIONS: 1. Given that hematuria appears to have resolved, would reinstitute anticoagulation with Lovenox 1 mg/kg subcutaneously q.12. 2. Continue amiodarone 200 mg daily. 3. Add oral Cardizem in hopes of allowing intravenous Cardizem to be weaned off. 4. Defer pursuit of cardioversion until patient has had sufficient load of amiodarone, has had sufficient uninterrupted anticoagulation, and until patient has improved considerably from a respiratory standpoint.
[2017-02-17] MEDS: DESYREL PO SCH (20:04)
[2017-02-18] MEDS: CARDIZEM 100 MG/NS 100 ML IV SCH ×4 (00:32→16:10)
[2017-02-18] MEDS: CLINIMIX E 4.25%-5% SOLUTION 1,000 ML IV SCH (02:02)
[2017-02-18] MEDS: DUONEB (A & A) INH SCH ×6 (02:43→23:04)
[2017-02-18 03:22] LABS: ALLEN TEST YES; BE 14.9 mmoll (-3.0-3.0); BLOOD TYPE ARTERIAL; DRAW SITE R BRACHIAL; METHB 1.4 % (0.0-1.5); O2(CT) 14.2 mL/dL (15.0-23.0); PO2(98.6) 196 mmHg (60-100); SAMPLE BLOOD; SAO2 98.8 % (95.0-100.0); THB 10.1 g/dL (11.5-17.4)
[2017-02-18 03:23] LABS: MODALITY BI PAP
[2017-02-18 03:27] LABS: PCO2(98.6) 68 mmHg (35-45)
[2017-02-18 05:31] LABS: MANUAL DIFF NEEDED? NO
[2017-02-18] MEDS: LOVENOX SUBQ SCH ×2 (05:34→17:36)
[2017-02-18] MEDS: ZOSYN 3.375 GM/NS 50 ML IV SCH ×4 (05:35→23:16)
[2017-02-18 05:36] LABS: BASO% 0.2 % (0.0-0.8); EOS# 0.03 X1000 (0.0-0.7); EOS% 0.4 % (0.0-10.0); HEMATOCRIT 32.4 % (42.0-52.0); IMM GRAN# 0.26 X1000 (0.0-0.04); IMM GRAN% 3.2 % (0.0-0.5); LYMPH# 0.57 X1000 (1.2-3.4); MCH 29.5 PG (27-31); MCHC 30.9 g/dL (33-37); MCV 95.6 FL (81-99); MONO% 8.6 % (1.7-9.3); MPV 10.3 FL (7.4-10.4); NEUT% 80.6 % (42.2-75.2); PLT 256 X1000 (130-400); RBC 3.39 XMIL (4.7-6.1)
[2017-02-18 06:09] LABS: AGAP 8; ALBUMIN 2.9 g/dL (3.5-5.0); ALKALINE PHOSPHATASE 52 U/L (32-122); BUN 21 mg/dL (8-22); CALCIUM 9.6 mg/dL (8.8-10.2); CHLORIDE 97 mmol/L (98-107); COSMO 299; GOT 18 U/L (10-34); GPT 18 U/L (10-44); MAGNESIUM 1.8 mg/dL (1.5-2.7); POTASSIUM 4.4 mmol/L (3.5-5.1); SODIUM 143 mmol/L (136-145); TCO2 38 mmol/L (25-35); TOTAL BILIRUBIN 0.32 mg/dL (0.20-1.00); TOTAL PROTEIN 6.1 g/dL (6.3-8.3)
[2017-02-18] MEDS: HUMALOG SUBQ SCH ×4 (06:36→20:24)
--- NOTE | 2017-02-18 07:17 | EKG Report ---
Test Performed on : 02/16/2017 06:51:58 AM Test Reason : Afib. QT prolonging medications Blood Pressure : / mmHG Vent. Rate : 073 BPM Atrial Rate : 288 BPM P-R Int : 000 ms QRS Dur : 086 ms QT Int : 406 ms P-R-T Axes : -01 004 -17 degrees QTc Int : 447 ms Atrial flutter. with 4:1 AV conduction. Abnormal ECG When compared with ECG of 14-FEB-2017 19:49, Previous ECG has undetermined rhythm, needs review QRS axis shifted right Criteria for Inferior infarct are no longer present ST no longer depressed in Inferior leads Non-specific change in ST segment in Anterior leads Nonspecific T wave abnormality has replaced inverted T waves in Anterior leads Confirmed by Los JONES, [place] ([id number]) on 02/18/2017 4:32:37 PM
[2017-02-18] MEDS: MUCOMYST 20% INH SCH ×2 (07:39→19:29)
[2017-02-18] MEDS: CARDIZEM PO SCH ×3 (09:35→17:36)
[2017-02-18] MEDS: CORDARONE PO SCH (09:36)
[2017-02-18] MEDS: ASTELIN NASAL SPRAY NAS SCH ×2 (09:41→20:23)
--- NOTE | 2017-02-18 10:08 | Diag Imaging Result Document ---
PROCEDURE NAME: CHEST-PORTABLE - 02/18/2017 AP PORTABLE CHEST, 02/18/2017 AT 0500 HOURS: FINDINGS: There is improvement in the opacity in the left lower lobe seen on 02/16/2017. No new abnormalities are present. IMPRESSION: Improved pneumonia left lower lobe.
--- NOTE | 2017-02-18 15:55 | EKG Report ---
Test Performed on : 02/18/2017 2:49:09 PM Test Reason : afib; Canc in error Blood Pressure : / mmHG Vent. Rate : 102 BPM Atrial Rate : 102 BPM P-R Int : 000 ms QRS Dur : 084 ms QT Int : 274 ms P-R-T Axes : 000 -27 -89 degrees QTc Int : 357 ms Undetermined rhythm Low voltage QRS Nonspecific ST and T wave abnormality Abnormal ECG When compared with ECG of 16-FEB-2017 06:51, (Unconfirmed) Current undetermined rhythm precludes rhythm comparison, needs review ST now depressed in Inferior leads ST now depressed in Anterior leads Nonspecific T wave abnormality, worse in Anterolateral leads QT has shortened Confirmed by Los JONES, [place] ([id number]) on 02/18/2017 4:36:22 PM
[2017-02-18 19:48] LABS: INR 2.28; PROTIME 25.2 Seconds (9.2-11.7)
[2017-02-18] MEDS: DESYREL PO SCH (20:24)
[2017-02-18] MEDS: COUMADIN PO SCH (20:24)
[2017-02-18] MEDS: LANTUS SUBQ SCH (20:25)
[2017-02-19] MEDS: CARDIZEM 100 MG/NS 100 ML IV SCH ×2 (01:07→12:07)
[2017-02-19] MEDS: DUONEB (A & A) INH SCH ×6 (02:55→23:20)
[2017-02-19 03:25] LABS: ALLEN TEST YES; BE 14.7 mmoll (-3.0-3.0); BLOOD TYPE ARTERIAL; DRAW SITE R BRACHIAL; METHB 1.9 % (0.0-1.5); O2(CT) 13.3 mL/dL (15.0-23.0); PO2(98.6) 150 mmHg (60-100); SAMPLE BLOOD; SAO2 98.9 % (95.0-100.0); THB 9.6 g/dL (11.5-17.4); pH(98.6) 7.46 (7.35-7.45)
[2017-02-19 03:26] LABS: MODALITY BI PAP
[2017-02-19 03:28] LABS: PCO2(98.6) 57 mmHg (35-45)
[2017-02-19] MEDS: ZOSYN 3.375 GM/NS 50 ML IV SCH ×4 (04:16→23:08)
[2017-02-19] MEDS: LOVENOX SUBQ SCH (05:40)
[2017-02-19 05:56] LABS: BASO% 0.3 % (0.0-0.8); EOS# 0.02 X1000 (0.0-0.7); EOS% 0.3 % (0.0-10.0); HEMOGLOBIN 9.3 g/dL (14.0-18.0); IMM GRAN# 0.22 X1000 (0.0-0.04); IMM GRAN% 3.5 % (0.0-0.5); LYMPH# 0.86 X1000 (1.2-3.4); LYMPH% 13.8 % (20.5-51.1); MANUAL DIFF NEEDED? YES; MCH 29.2 PG (27-31); MONO# 0.57 X1000 (0.11-0.59); MONO% 9.2 % (1.7-9.3); MPV 10.5 FL (7.4-10.4); NEUT% 72.9 % (42.2-75.2); PLT 257 X1000 (130-400); RBC 3.19 XMIL (4.7-6.1)
[2017-02-19] MEDS: HUMALOG SUBQ SCH ×4 (06:07→21:25)
[2017-02-19 06:10] LABS: INR 2.24; PROTIME 24.8 Seconds (9.2-11.7)
[2017-02-19 06:23] LABS: AGAP 9; ALBUMIN 2.8 g/dL (3.5-5.0); ALKALINE PHOSPHATASE 50 U/L (32-122); BUN 23 mg/dL (8-22); CALCIUM 9.4 mg/dL (8.8-10.2); CHLORIDE 98 mmol/L (98-107); COSMO 297; GOT 20 U/L (10-34); GPT 22 U/L (10-44); MAGNESIUM 1.7 mg/dL (1.5-2.7); POTASSIUM 3.6 mmol/L (3.5-5.1); SODIUM 144 mmol/L (136-145); TCO2 37 mmol/L (25-35); TOTAL BILIRUBIN 0.29 mg/dL (0.20-1.00); TOTAL PROTEIN 5.8 g/dL (6.3-8.3)
--- NOTE | 2017-02-19 06:58 | EKG Report ---
Test Performed on : 02/19/2017 06:32:36 AM Test Reason : afib Blood Pressure : / mmHG Vent. Rate : 072 BPM Atrial Rate : 072 BPM P-R Int : 400 ms QRS Dur : 088 ms QT Int : 446 ms P-R-T Axes : -21 001 101 degrees QTc Int : 488 ms Sinus rhythm. with 1st degree AV block. Low voltage QRS Cannot rule out Anterior infarct (cited on or before 19-FEB-2017) Abnormal ECG When compared with ECG of 19-FEB-2017 06:30, (Unconfirmed) Sinus rhythm. has replaced Junctional rhythm. Non-specific change in ST segment in Inferior leads QT has shortened Confirmed by Los JONES, [place] ([id number]) on 02/19/2017 6:51:45 PM
[2017-02-19] MEDS: MUCOMYST 20% INH SCH ×2 (07:31→19:30)
[2017-02-19 07:46] LABS: BANDS 4 % (0-1); LYMPHS 18 % (21-51); MONO 4 % (1-9); NRBC 1 % (0-0)
[2017-02-19] MEDS: ASTELIN NASAL SPRAY NAS SCH ×2 (08:37→21:24)
[2017-02-19] MEDS: CARDIZEM PO SCH ×3 (08:38→17:01)
[2017-02-19] MEDS: CORDARONE PO SCH (08:38)
[2017-02-19] MEDS ORDERED: INSULIN PEN NEEDLES ONE (20:30)
[2017-02-19] MEDS: DESYREL PO SCH (21:24)
[2017-02-19] MEDS: COUMADIN PO SCH (21:24)
[2017-02-19] MEDS: LANTUS SUBQ SCH (21:25)
[2017-02-20] MEDS: DUONEB (A & A) INH SCH ×6 (03:15→23:03)
[2017-02-20 04:28] LABS: ALLEN TEST YES; BE 14.4 mmoll (-3.0-3.0); BLOOD TYPE ARTERIAL; DRAW SITE R RADIAL; O2(CT) 11.5 mL/dL (15.0-23.0); PO2(98.6) 129 mmHg (60-100); SAMPLE BLOOD; SAO2 98.8 % (95.0-100.0); SRATE 4 BPM; THB 8.3 g/dL (11.5-17.4); pH(98.6) 7.43 (7.35-7.45)
[2017-02-20 04:33] LABS: MODALITY BI PAP
[2017-02-20 05:15] LABS: PCO2(98.6) 61 mmHg (35-45)
[2017-02-20 05:16] LABS: MANUAL DIFF NEEDED? NO
[2017-02-20 05:26] LABS: BASO% 0.2 % (0.0-0.8); EOS# 0.06 X1000 (0.0-0.7); HEMATOCRIT 29.4 % (42.0-52.0); HEMOGLOBIN 9.1 g/dL (14.0-18.0); IMM GRAN# 0.17 X1000 (0.0-0.04); IMM GRAN% 2.8 % (0.0-0.5); LYMPH# 0.78 X1000 (1.2-3.4); LYMPH% 12.9 % (20.5-51.1); MCH 29.4 PG (27-31); MCV 94.8 FL (81-99); MONO# 0.54 X1000 (0.11-0.59); MONO% 8.9 % (1.7-9.3); MPV 10.3 FL (7.4-10.4); NEUT% 74.2 % (42.2-75.2); PLT 238 X1000 (130-400)
[2017-02-20 05:38] LABS: AGAP 8; BUN 19 mg/dL (8-22); CALCIUM 9.4 mg/dL (8.8-10.2); CHLORIDE 102 mmol/L (98-107); COSMO 298; POTASSIUM 3.3 mmol/L (3.5-5.1); SODIUM 147 mmol/L (136-145); TCO2 37 mmol/L (25-35)
[2017-02-20] MEDS: ZOSYN 3.375 GM/NS 50 ML IV SCH ×4 (05:58→23:18)
[2017-02-20] MEDS: HUMALOG SUBQ SCH ×4 (06:07→21:41)
[2017-02-20] MEDS ORDERED: POTASSIUM CHLORIDE 20 MEQ/SWI 100 ML IV ONE (07:10)
[2017-02-20] MEDS: MUCOMYST 20% INH SCH ×2 (07:52→19:21)
[2017-02-20] MEDS: CARDIZEM CD PO SCH (09:22)
[2017-02-20] MEDS: CORDARONE PO SCH (09:22)
[2017-02-20] MEDS: ASTELIN NASAL SPRAY NAS SCH ×2 (09:22→21:34)
[2017-02-20 14:24] LABS: INR 2.94; PROTIME 33.1 Seconds (9.2-11.7)
[2017-02-20] MEDS: DESYREL PO SCH (21:33)
[2017-02-20] MEDS: COUMADIN PO SCH (21:36)
[2017-02-20] MEDS: LANTUS SUBQ SCH (21:40)
[2017-02-20] MEDS ORDERED: PNEUMOVAX 23 IM ONE (22:23)
[2017-02-21] MEDS: DUONEB (A & A) INH SCH ×6 (02:40→22:50)
[2017-02-21 05:26] LABS: MANUAL DIFF NEEDED? NO
[2017-02-21] MEDS: ZOSYN 3.375 GM/NS 50 ML IV SCH ×4 (05:29→23:03)
[2017-02-21 05:32] LABS: BASO% 0.2 % (0.0-0.8); EOS# 0.06 X1000 (0.0-0.7); HEMOGLOBIN 9.3 g/dL (14.0-18.0); IMM GRAN% 1.7 % (0.0-0.5); LYMPH# 0.78 X1000 (1.2-3.4); MCH 29.2 PG (27-31); MONO# 0.53 X1000 (0.11-0.59); MONO% 8.8 % (1.7-9.3); MPV 10.1 FL (7.4-10.4); NEUT% 75.3 % (42.2-75.2); PLT 250 X1000 (130-400); RBC 3.19 XMIL (4.7-6.1)
[2017-02-21 05:45] LABS: AGAP 7; BUN 15 mg/dL (8-22); CALCIUM 9.1 mg/dL (8.8-10.2); CHLORIDE 102 mmol/L (98-107); COSMO 294; MAGNESIUM 1.6 mg/dL (1.5-2.7); POTASSIUM 3.6 mmol/L (3.5-5.1); SODIUM 145 mmol/L (136-145); TCO2 36 mmol/L (25-35)
[2017-02-21 06:10] LABS: INR 3.25; PROTIME 36.8 Seconds (9.2-11.7)
[2017-02-21] MEDS: HUMALOG SUBQ SCH ×4 (06:42→21:34)
--- NOTE | 2017-02-21 07:56 | EKG Report ---
Test Performed on : 02/21/2017 07:41:53 AM Test Reason : A. Fib Blood Pressure : / mmHG Vent. Rate : 115 BPM Atrial Rate : 136 BPM P-R Int : 176 ms QRS Dur : 092 ms QT Int : 394 ms P-R-T Axes : 021 -31 003 degrees QTc Int : 545 ms Sinus tachycardia. with frequent premature ventricular complexes. and fusion complexes Left axis deviation Low voltage QRS Nonspecific T wave abnormality Abnormal ECG When compared with ECG of 19-FEB-2017 06:32, fusion complexes are now present premature ventricular complexes. are now present NC interval has decreased Vent. rate has increased BY 43 BPM Confirmed by [place] JONES, [place] ([id number]) on 02/21/2017 8:00:37 PM
[2017-02-21] MEDS: MUCOMYST 20% INH SCH ×2 (08:02→19:30)
[2017-02-21] MEDS: ASTELIN NASAL SPRAY NAS SCH ×2 (09:09→21:35)
[2017-02-21] MEDS: CARDIZEM CD PO SCH (09:09)
[2017-02-21] MEDS: CORDARONE PO SCH (09:09)
[2017-02-21] MEDS: LANTUS SUBQ SCH ×2 (09:14→21:36)
--- NOTE | 2017-02-21 09:46 | Diag Imaging Result Document ---
PROCEDURE NAME: CHEST-PORTABLE - 02/21/2017 SINGLE FRONTAL RADIOGRAPH OF THE CHEST: COMPARISON: 02/18/2017. FINDINGS: Inspiration is suboptimal. Vague consolidation at the left lower lung zone is essentially stable. No definite new consolidation is identified. Cardiac silhouette is stable. IMPRESSION: Stable chest.
[2017-02-21] MEDS: DESYREL PO SCH (21:35)
[2017-02-22] MEDS: DUONEB (A & A) INH SCH ×6 (03:15→22:55)
[2017-02-22 03:57] LABS: ALLEN TEST YES; BE 12.5 mmoll (-3.0-3.0); BLOOD TYPE ARTERIAL; DRAW SITE R RADIAL; METHB 1.7 % (0.0-1.5); O2(CT) 12.9 mL/dL (15.0-23.0); PCO2(98.6) 49 mmHg (35-45); PO2(98.6) 88 mmHg (60-100); SAMPLE BLOOD; SAO2 97.9 % (95.0-100.0); THB 9.5 g/dL (11.5-17.4); pH(98.6) 7.49 (7.35-7.45)
[2017-02-22 03:58] LABS: MODALITY CANNULA
[2017-02-22 05:22] LABS: MANUAL DIFF NEEDED? NO
[2017-02-22 05:25] LABS: BASO% 0.2 % (0.0-0.8); EOS# 0.11 X1000 (0.0-0.7); EOS% 1.7 % (0.0-10.0); HEMATOCRIT 30.8 % (42.0-52.0); HEMOGLOBIN 9.7 g/dL (14.0-18.0); IMM GRAN# 0.08 X1000 (0.0-0.04); IMM GRAN% 1.3 % (0.0-0.5); LYMPH# 0.99 X1000 (1.2-3.4); LYMPH% 15.7 % (20.5-51.1); MCH 29.4 PG (27-31); MCHC 31.5 g/dL (33-37); MCV 93.3 FL (81-99); MONO% 7.9 % (1.7-9.3); MPV 10.5 FL (7.4-10.4); NEUT% 73.2 % (42.2-75.2); PLT 266 X1000 (130-400)
[2017-02-22 05:44] LABS: AGAP 10; BUN 12 mg/dL (8-22); CHLORIDE 101 mmol/L (98-107); COSMO 289; MAGNESIUM 1.6 mg/dL (1.5-2.7); POTASSIUM 3.9 mmol/L (3.5-5.1); SODIUM 144 mmol/L (136-145); TCO2 33 mmol/L (25-35)
[2017-02-22 05:45] LABS: INR 2.18; PROTIME 24.1 Seconds (9.2-11.7)
[2017-02-22] MEDS: ZOSYN 3.375 GM/NS 50 ML IV SCH ×5 (05:46→23:12)
[2017-02-22] MEDS: HUMALOG SUBQ SCH ×4 (06:30→21:55)
[2017-02-22] MEDS: MUCOMYST 20% INH SCH ×2 (07:58→19:40)
--- NOTE | 2017-02-22 12:23 | Diag Imaging Result Document ---
PROCEDURE NAME: BA SWALLOW W/VIDEO SPEECH THER - 02/22/2017 MODIFIED BARIUM SWALLOW: FINDINGS: The patient was able to swallow liquid and paste consistency barium without difficulty, although on the fast liquid barium swallow there is a trace amount of aspiration which only passes just below the cords. IMPRESSION: Trace aspiration with rapid swallowing of liquid barium.
[2017-02-22] MEDS: CORDARONE PO SCH ×2 (12:31→21:53)
[2017-02-22] MEDS: ASTELIN NASAL SPRAY NAS SCH ×2 (12:31→21:53)
[2017-02-22] MEDS: CARDIZEM CD PO SCH (12:31)
[2017-02-22] MEDS ORDERED: INSULIN PEN NEEDLES ONE (21:40)
[2017-02-22] MEDS: COUMADIN PO SCH (21:52)
[2017-02-22] MEDS: DESYREL PO SCH (21:53)
[2017-02-22] MEDS: LANTUS SUBQ SCH (21:55)
[2017-02-23] MEDS: DUONEB (A & A) INH SCH ×6 (03:15→23:00)
[2017-02-23] MEDS: ZOSYN 3.375 GM/NS 50 ML IV SCH ×4 (04:55→22:30)
[2017-02-23] MEDS: HUMALOG SUBQ SCH ×4 (06:00→21:10)
[2017-02-23] MEDS: MUCOMYST 20% INH SCH ×2 (07:30→19:10)
[2017-02-23] MEDS: CORDARONE PO SCH ×2 (09:00→21:10)
[2017-02-23] MEDS: ASTELIN NASAL SPRAY NAS SCH ×2 (09:00→21:10)
[2017-02-23] MEDS: CARDIZEM CD PO SCH (09:00)
--- NOTE | 2017-02-23 14:19 | PROGRESS NOTE ---
DATE: 02/23/2017 CHIEF COMPLAINT: Shortness of breath. Irregular heartbeat. SUBJECTIVE: Mr. Adams continues to make some progress, according to his . He is eating a little better. He still sounds like he is gurgling at times. He is not as short of breath as he was. Overall, the is pleased with his progress. OBJECTIVE: Vital signs: Blood pressure 117/72, temperature is 98 degrees, pulse 106, respirations 22. General: He is awake, alert, oriented. Again, he sounds like he is making gurgles in the upper respiratory tract. Of note, they have done a barium swallow that shows trace aspiration with rapid swallowing of liquid barium. Chest: Shows bilateral coarse rales. His inspiratory effort is really very poor for a grownup man who has been in the [employer]. Cardiac: Heart sounds are irregularly irregular. Abdomen: Slightly distended. Extremities: No edema. Neurological: He appears to be generally debilitated. He has slurred speech and the right side of his face appears to be somewhat weak. IMPRESSION: 1. Patient who presented with pneumonia, probably aspiration. 2. He does have chronic obstructive pulmonary disease. 3. Suspect multiple strokes. 4. Atrial fibrillation with a rapid response. This is better controlled now. 5. History of hypertension. RECOMMENDATION: At this point in time, I would suggest to continue present course of therapy. The patient is going to need a lot of physical therapy. However, the [place] in his case is to really get him up and move around. Will follow him along. cc: MD Masood Mahoney MD
[2017-02-23 16:44] LABS: INR 1.78; PROTIME 19.4 Seconds (9.2-11.7)
[2017-02-23] MEDS: COUMADIN PO SCH (21:10)
[2017-02-23] MEDS: DESYREL PO SCH (21:10)
[2017-02-23] MEDS: MYCOSTATIN SUSP PO SCH (23:00)
[2017-02-23] MEDS: LANTUS SUBQ SCH (23:54)
[2017-02-24] MEDS: DUONEB (A & A) INH SCH ×6 (03:29→22:57)
[2017-02-24] MEDS: ZOSYN 3.375 GM/NS 50 ML IV SCH ×4 (04:30→20:03)
[2017-02-24 05:27] LABS: MANUAL DIFF NEEDED? NO
[2017-02-24 05:31] LABS: BASO% 0.2 % (0.0-0.8); EOS% 1.5 % (0.0-10.0); HEMOGLOBIN 9.1 g/dL (14.0-18.0); IMM GRAN# 0.03 X1000 (0.0-0.04); IMM GRAN% 0.5 % (0.0-0.5); LYMPH# 1.06 X1000 (1.2-3.4); LYMPH% 15.9 % (20.5-51.1); MCHC 31.4 g/dL (33-37); MCV 92.4 FL (81-99); MONO# 0.48 X1000 (0.11-0.59); MONO% 7.2 % (1.7-9.3); MPV 10.4 FL (7.4-10.4); NEUT% 74.7 % (42.2-75.2); PLT 296 X1000 (130-400); RBC 3.14 XMIL (4.7-6.1)
[2017-02-24 05:40] LABS: INR 2.11; PROTIME 22.4 Seconds (9.2-11.7)
[2017-02-24 05:53] LABS: AGAP 9; BUN 13 mg/dL (8-22); CALCIUM 8.8 mg/dL (8.8-10.2); CHLORIDE 103 mmol/L (98-107); COSMO 285; SODIUM 142 mmol/L (136-145); TCO2 30 mmol/L (25-35)
[2017-02-24 05:57] LABS: ALLEN TEST YES; BE 5.5 mmoll (-3.0-3.0); BLOOD TYPE ARTERIAL; DRAW SITE R RADIAL; METHB 1.5 % (0.0-1.5); O2(CT) 19.5 mL/dL (15.0-23.0); PCO2(98.6) 48 mmHg (35-45); PO2(98.6) 71 mmHg (60-100); SAMPLE BLOOD; THB 14.8 g/dL (11.5-17.4); pH(98.6) 7.42 (7.35-7.45)
[2017-02-24 05:59] LABS: MODALITY CANNULA
[2017-02-24] MEDS: HUMALOG SUBQ SCH ×4 (06:38→20:06)
[2017-02-24] MEDS: MUCOMYST 20% INH SCH ×2 (08:28→19:52)
[2017-02-24] MEDS: CORDARONE PO SCH ×2 (09:08→20:03)
[2017-02-24] MEDS: MYCOSTATIN SUSP PO SCH ×4 (09:08→20:02)
[2017-02-24] MEDS: ASTELIN NASAL SPRAY NAS SCH ×2 (09:08→20:02)
[2017-02-24] MEDS: CARDIZEM CD PO SCH (09:08)
--- NOTE | 2017-02-24 12:58 | Diag Imaging Result Document ---
PROCEDURE NAME: CHEST-PORTABLE - 02/24/2017 PORTABLE CHEST: Compared with 02/21/2017. FINDINGS: There has been interval decrease in infrahilar infiltrates. Infrahilar markings remain mildly prominent. The upper lungs remain clear. There is no pleural effusion or pneumothorax identified. IMPRESSION: Some interval decrease in infrahilar infiltrates.
[2017-02-24] MEDS: DESYREL PO SCH (20:03)
[2017-02-24] MEDS: COUMADIN PO SCH (20:03)
[2017-02-24] MEDS: LANTUS SUBQ SCH (20:04)
[2017-02-24] MEDS ORDERED: INSULIN PEN NEEDLES ONE (21:35)
[2017-02-25] MEDS: ZOSYN 3.375 GM/NS 50 ML IV SCH ×6 (02:57→22:46)
[2017-02-25] MEDS: DUONEB (A & A) INH SCH ×4 (03:05→21:15)
[2017-02-25 05:16] LABS: INR 2.41; PROTIME 26.8 Seconds (9.2-11.7)
--- NOTE | 2017-02-25 05:43 | EKG Report ---
Test Performed on : 02/24/2017 06:34:51 AM Test Reason : afib Blood Pressure : / mmHG Vent. Rate : 082 BPM Atrial Rate : 072 BPM P-R Int : 000 ms QRS Dur : 088 ms QT Int : 404 ms P-R-T Axes : 000 -38 000 degrees QTc Int : 472 ms Accelerated Junctional rhythm. with frequent and consecutive premature ventricular complexes. Left axis deviation Inferior infarct , age undetermined Abnormal ECG AC artifact multiplre leads When compared with ECG of 21-FEB-2017 07:41, Junctional rhythm. has replaced Sinus rhythm. Nonspecific T wave abnormality no longer evident in Lateral leads Confirmed by Cristofer JONES, Clifton Joshua ([id number]) on 02/25/2017 9:17:01 AM
[2017-02-25] MEDS: HUMALOG SUBQ SCH ×4 (06:14→22:41)
[2017-02-25] MEDS: MYCOSTATIN SUSP PO SCH ×5 (08:54→22:47)
[2017-02-25] MEDS: CARDIZEM CD PO SCH (08:55)
[2017-02-25] MEDS: CORDARONE PO SCH ×2 (08:55→22:45)
[2017-02-25] MEDS: ASTELIN NASAL SPRAY NAS SCH ×2 (08:55→22:45)
[2017-02-25] MEDS: MUCOMYST 20% INH SCH ×2 (09:31→21:10)
[2017-02-25] MEDS: DESYREL PO SCH (22:44)
[2017-02-25] MEDS: COUMADIN PO SCH (22:45)
[2017-02-25] MEDS: LANTUS SUBQ SCH (22:46)
[2017-02-26] MEDS: DUONEB (A & A) INH SCH ×4 (03:26→21:15)
[2017-02-26] MEDS: ZOSYN 3.375 GM/NS 50 ML IV SCH ×4 (03:35→22:39)
[2017-02-26] MEDS ORDERED: NS 1,000 ML ONE (05:16)
[2017-02-26 05:18] LABS: INR 2.76; PROTIME 30.9 Seconds (9.2-11.7)
[2017-02-26] MEDS: HUMALOG SUBQ SCH ×4 (06:32→22:41)
[2017-02-26] MEDS: CARDIZEM CD PO SCH (08:53)
[2017-02-26] MEDS: ASTELIN NASAL SPRAY NAS SCH ×2 (08:53→22:42)
[2017-02-26] MEDS: CORDARONE PO SCH ×2 (08:54→22:42)
[2017-02-26] MEDS: MYCOSTATIN SUSP PO SCH ×4 (08:54→22:40)
[2017-02-26] MEDS: MUCOMYST 20% INH SCH ×2 (10:31→21:15)
[2017-02-26] MEDS: DESYREL PO SCH (22:42)
[2017-02-26] MEDS: LANTUS SUBQ SCH (22:43)
[2017-02-26] MEDS: COUMADIN PO SCH (22:43)
[2017-02-27] MEDS: DUONEB (A & A) INH SCH ×4 (03:00→19:36)
[2017-02-27] MEDS: ZOSYN 3.375 GM/NS 50 ML IV SCH ×4 (03:55→20:01)
[2017-02-27] MEDS: HUMALOG SUBQ SCH ×4 (06:40→20:08)
[2017-02-27 07:35] LABS: INR 3.2; PROTIME 36.2 Seconds (9.2-11.7)
[2017-02-27] MEDS: MYCOSTATIN SUSP PO SCH ×4 (10:15→20:01)
[2017-02-27] MEDS: ASTELIN NASAL SPRAY NAS SCH ×2 (10:16→20:01)
[2017-02-27] MEDS: CORDARONE PO SCH ×2 (10:17→20:01)
[2017-02-27] MEDS: CARDIZEM CD PO SCH (10:17)
[2017-02-27] MEDS: MUCOMYST 20% INH SCH ×2 (11:01→19:36)
[2017-02-27] MEDS: LANTUS SUBQ SCH (20:01)
[2017-02-27] MEDS: DESYREL PO SCH (20:01)
[2017-02-27] MEDS: COUMADIN PO SCH (20:01)
[2017-02-28] MEDS: ZOSYN 3.375 GM/NS 50 ML IV SCH ×2 (02:00→08:23)
[2017-02-28] MEDS: DUONEB (A & A) INH SCH ×2 (03:10→09:52)
[2017-02-28] MEDS: HUMALOG SUBQ SCH (06:04)
--- NOTE | 2017-02-28 08:23 | DISCHARGE SUMMARY ---
ADMISSION DATE: 02/13/2017 DISCHARGE DATE: 02/28/2017 DISCHARGE DIAGNOSES: 1. Paroxysmal atrial fibrillation with rapid ventricular response. 2. Acute chronic obstructive pulmonary disease exacerbation. 3. Aspiration pneumonia. 4. Type 2 diabetes mellitus that has been uncontrolled. 5. Hypertension. 6. Generalized weakness secondary to overall deconditioning. 7. Acute on chronic respiratory failure secondary to chronic obstructive pulmonary disease that has been end-stage. HOSPITAL COURSE: Mr. Adams is a 77-year-old gentleman who was admitted on 02/13 after he presented to the emergency department with shortness of breath. He was noted to have paroxysmal atrial fibrillation with rapid ventricular response and acute chronic obstructive pulmonary disease exacerbation, after which he was treated with IV furosemide, along with oxygen inhalation. He was also given albuterol and Atrovent nebulization treatments and was given amiodarone for his atrial fibrillation. Cardiology and pulmonary consultations were obtained, who were actively involved in the care of this patient during this hospital admission. He had been taking metformin along with glimepiride, but those were discontinued and he was treated with insulin as per sliding scale here at the hospital. The patient's atrial fibrillation finally got under controlled after we gave him oral loading doses of amiodarone. His condition has been stable since then. He did have vomiting with aspiration while at the hospital, after which he was having respiratory failure and had to be treated with IV Zosyn. His condition gradually has improved and he did require BiPAP for several days. He was getting warfarin for thromboembolism prophylaxis and has gradually improved. His condition has improved but he still having generalized weakness. I have discussed with the patient's family and they declined to be transferred to rehab. They would rather go home with home health and at-home physical therapy. Since patient's condition has overall improved, he is going to be discharged home today. DISCHARGE MEDICATIONS: 1. Diltiazem CD 240 mg orally once daily. 2. Amiodarone 400 mg orally once daily. 3. Warfarin 3 mg orally once daily at bedtime, which will be started on 2016 since his INR has been slightly elevated at 3.2. 4. Metformin 1 gram orally twice daily. 5. Januvia 100 mg orally once daily. 6. Glimepiride 1 mg orally once daily in the morning. 7. Trazodone 100 mg orally once daily at bedtime. 8. Pravastatin 40 mg orally once daily at bedtime. 9. Omeprazole 40 mg orally once daily in the morning. 10. Albuterol and Atrovent nebulization treatments every 6 hours. 11. Multivitamin orally once daily. FOLLOWUP: He will follow up with me in the office in approximately one week and follow with Dr. Vinod Ontiveros at [facility] in approximately 2-3 weeks. CONDITION: Stable. DISPOSITION: Home. TIME SPENT: A total of more than 40 minutes was spent during the discharge process today. cc: Masood Umana MD MTDD
[2017-02-28] MEDS: ASTELIN NASAL SPRAY NAS SCH (08:26)
[2017-02-28] MEDS: MYCOSTATIN SUSP PO SCH (08:27)
[2017-02-28] MEDS: CARDIZEM CD PO SCH (08:35)
[2017-02-28] MEDS: CORDARONE PO SCH (08:35)
[2017-02-28 09:03] VITALS: BP 110/71
[2017-02-28] MEDS: MUCOMYST 20% INH SCH (09:52)
[2017-03-01] MEDS ORDERED: CORDARONE PO SCH (09:00)
== END 2017-02-28 10:48 | disposition home health service (06) ==
LOC: P.ED 12:49 → P.MEDSURG 12:50 → 3S 02-14 19:04 → 4N 02-27 16:10
PROVIDERS: ADMIT Internal Medicine; ATTEND Internal Medicine